=== PATIENT | female | born 1970 | race Two or more races ===

== ENCOUNTER 2020-05-21 09:22 | Outpatient (REF) | payer OTHER, SELFPAY ==
--- NOTE | ~2020-05-21 | MM_ITS ---
EXAMINATION: MM SCREENING DIGITAL BREAST TOMOSYNTHESIS, BILATERAL CLINICAL INFORMATION: Screening. Asymptomatic. Remote breast reduction mammoplasty 2008. The lifetime risk of breast cancer based on the Tyrer-Cuzick Model is 13%. COMPARISON: Mammography: 06/12/2016, 03/25/2015 TECHNIQUE: Digital breast tomosynthesis is performed in both the craniocaudal and mediolateral oblique views along with computer-aided detection (CAD). Synthesized 2D images are generated from the tomosynthesis. FINDINGS: There are scattered areas of fibroglandular density (ACR BI-RADS breast composition Category b). There are no significant masses, abnormal calcifications, or other abnormalities. There is some minor scarring in the lower breasts and some symmetric punctate round, rim, predominantly dermal calcifications consistent with the history prior reduction mammoplasty. There are no significant changes from prior exams. MM/MM tomosynthesis screening BI IMPRESSION: No mammographic evidence of malignancy. ASSESSMENT: BI-RADS 2: Benign RECOMMENDATION: Routine annual mammography screening. This patient's information was entered into a reminder system with a target due date for their next mammogram.
== END 2020-05-21 09:23 | disposition home or self-care (01) ==
LOC: HO.MAMMO 09:22
PROVIDERS: PCP Internal Medicine; Visit Provider Internal Medicine
DX: Z12.31 Encounter for screening mammogram for malignant neoplasm of breast (principal)
CPT/HCPCS: 77063; 77067

== ENCOUNTER 2020-07-12 10:10 | Outpatient (REF) | payer OTHER, SELFPAY ==
--- NOTE | ~2020-07-12 | US_ITS ---
EXAMINATION: PELVIC ULTRASOUND CLINICAL INFORMATION: Frequent menses COMPARISON: None TECHNIQUE: Transabdominal and transvaginal pelvic ultrasound was performed. Transvaginal exam was performed for better visualization of the uterus and ovaries. FINDINGS: The uterus is anteverted and measures 10.1 x 7.5 x 9 cm in dimension. Uterine echotexture is heterogeneous. At least 5 focal uterine lesions are seen probably representing fibroids. These measure 5.2 x 4.8 x 4 cm in the posterior lower uterine segment, 2 cm in the posterior uterine body, 2.5 cm in the posterior uterine body, 2.5 x 3 cm in the fundus and 2.5 cm in the anterior uterine body. The endometrium appears heterogeneous with several small echogenic foci. Endometrial thickness measures 9 mm. There is increased vascularity seen. Appearance is questionable for possible endometrial polyp. The right ovary is normal and measures 3 x 2 x 1.6 cm. The left ovary measures 4 x 2 x 2.7 cm. There is a 0.9 cm complex left ovarian cyst with internal echoes. There is no fluid in the pelvis. US/US pelvic and transvaginal IMPRESSION: Enlarged fibroid uterus. Heterogeneous-appearing endometrium with vascularity. Appearance is questionable for possible endometrial polyp. Either follow-up pelvic ultrasound, sonohysterogram or pelvic MRI could be considered. 1.9 cm complex left ovarian cyst.
== END 2020-07-12 10:11 | disposition home or self-care (01) ==
LOC: HO.HMGCX 10:10
PROVIDERS: PCP Internal Medicine; Visit Provider Advanced Practice Midwife
DX: N92.0 Excessive and frequent menstruation with regular cycle (principal)
CPT/HCPCS: 76830; 76856

== ENCOUNTER 2020-08-30 08:15 | Outpatient (REF) | payer OTHER, SELFPAY ==
[2020-08-30 10:39] LABS: Hematocrit 41.4 % (37-47); Hemoglobin 13.3 g/dl (12.0-16.0); Mean Corpuscular HGB Conc 32.1 g/dl (31.0-35.0); Mean Platelet Volume 10.5 fL (9.4-12.3); Platelet Count 285 X10*3/uL (160-400); Red Blood Count 5.11 X10*6/uL (4.20-5.50); Red Cell Distribution Width 15.8 % (11.0-16.0); White Blood Count 6.3 X10*3/uL (4.8-10.8)
[2020-08-30 10:45] LABS: Alanine Aminotransferase 13 U/L (0-31); Albumin Level 4.3 g/dL (3.5-5.0); Alkaline Phosphatase 51 U/L (39-117); Anion Gap 11 (12-20); Aspartate Amino Transferase 15 U/L (5-31); Bilirubin Total 0.5 mg/dL (0.0-1.0); Blood Urea Nitrogen 11 mg/dL (9-16); Calcium 9.7 mg/dL (8.4-10.2); Carbon Dioxide 29 mmol/L (22-29); Chloride 106 mmol/L (96-108); Estimated Glomerular Filt Rate > 60; Glucose Random 110 mg/dL (60-115); Potassium 4.5 mmol/L (3.3-5.1); Sodium 141 mmol/L (135-145); Total Protein 6.9 g/dL (6.5-8.0)
== END 2020-08-30 08:16 | disposition home or self-care (01) ==
LOC: HO.LAB 08:15
PROVIDERS: PCP Internal Medicine; Referring Provider Internal Medicine; Visit Provider Nurse Practitioner Family
DX: K59.00 Constipation, unspecified (principal)
CPT/HCPCS: 36415; 80053; 85027

== ENCOUNTER 2020-09-14 12:46 | Outpatient (REF) | payer OTHER, SELFPAY ==
[2020-09-14 15:15] LABS: HCG Quantitative < 2 mIU/mL; TSH reflex Free T4 1.57 uIU/mL (0.32-4.0)
[2020-09-15 02:40] LABS: CT PCR NOT DETECTED (Not Detect.); NG PCR NOT DETECTED (Not Detect.)
[2020-09-15 12:52] LABS: CA-125 17 U/mL (<35)
[2020-09-17 07:01] LABS: HPV mRNA E6/E7 rflx Not Detected (Not Detected)
== END 2020-09-14 12:47 | disposition home or self-care (01) ==
LOC: HO.LAB 12:46
PROVIDERS: PCP Internal Medicine; Visit Provider Obstetrics & Gynecology
DX: Z12.4 Encounter for screening for malignant neoplasm of cervix (principal); Z11.51 Encounter for screening for human papillomavirus (HPV); Z11.3 Encounter for screening for infections with a predominantly sexual mode of transmission; N92.1 Excessive and frequent menstruation with irregular cycle; N84.0 Polyp of corpus uteri; N93.9 Abnormal uterine and vaginal bleeding, unspecified; D21.9 Benign neoplasm of connective and other soft tissue, unspecified; N83.299 Other ovarian cyst, unspecified side
CPT/HCPCS: 36415; 84443; 84702; 86304; 87491; 87591; 87624; 88142

== ENCOUNTER → 2020-09-21 08:46 | Outpatient (BNVA) | payer OTHER, SELFPAY | PROVIDERS: Visit Provider Obstetrics & Gynecology ==

== ENCOUNTER 2020-09-23 08:08 | Day surgery (SDC) | payer OTHER, SELFPAY ==
--- NOTE | 2020-09-22 09:07 | HO.ANESPROP2 ---
Documented by User: Merlyn Gupta 09/22/20 09:07 HPI - Anesthesia Eval Consult details Narrative: 50yo F for D&C Diagnostic Hysteroscopy,poss polypectomy/myomectomy PMFSH Active Problems Active Problems: All Active Problems (Updated 09/14/20 @ 13:38 by Daniel Nolan MD) Complex ovarian cyst (Acute) Endometrial polyp (Acute) Myoma (Acute) Menometrorrhagia (Acute) Past Medical History Medical History Anemia Constipation Lipoma of both lower extremities Surgical History Surgical History H/O hernia repair Hx of breast reduction, elective Social History Social History Alcohol intake: never Patient Tobacco Use Status: Never used Tobacco Second Hand Smoke Exposure: No Use of substances other than those prescribed or required for medical reasons: No Are you DNR?: No Advance Directives: No Advance Directives Information Provided: Yes Advance Directives on File: No Nutrition Risks: No Nutritional Risk Meds Allergies Allergy/AdvReac Type Severity Reaction Status Date / Time No Known Allergies Allergy Verified 09/14/20 13:09 Home Medications Medication Instructions Recorded Confirmed Last Taken Type ibuprofen 800 mg tablet 800 mg PO Q8H 08/30/20 09/21/20 Unknown History Exam Exam Date and Time: September 22, 2020906 Pertinent Lab Results Pertinent Lab Results: Laboratory Tests 08/30/20 08/30/20 10:10 10:10 WBC 6.3 Hgb 13.3 Hct 41.4 Plt Count 285 Sodium 141 Potassium 4.5 Chloride 106 Carbon Dioxide 29 BUN 11 Creatinine 0.81 Assessment and Plan Assessment Anesthesia Assessment: Chart Reviewed Documented by User: Hien Anderson 09/23/20 09:03 PMFSH Past Medical History Medical History Anemia Constipation Lipoma of both lower extremities Surgical History Surgical History H/O hernia repair Hx of breast reduction, elective Social History Social History Alcohol intake: never Patient Tobacco Use Status: Never used Tobacco Second Hand Smoke Exposure: No Use of substances other than those prescribed or required for medical reasons: No Are you DNR?: No Advance Directives: No Advance Directives Information Provided: Yes Advance Directives on File: No Nutrition Risks: No Nutritional Risk Meds Allergies Allergy/AdvReac Type Severity Reaction Status Date / Time No Known Allergies Allergy Verified 09/14/20 13:09 Home Medications Medication Instructions Recorded Confirmed Last Taken Type ibuprofen 800 mg tablet 800 mg PO Q8H 08/30/20 09/21/20 Unknown History Exam Airway Mallampati Class: II TM Dist: >3cm Neck ROM: Full Assessment and Plan Assessment Anesthesia Assessment: Anesthesia Plan Discussed and Chart Reviewed Final Anesthetic Review NPO: Yes ASA Class: II Final Preanesthetic Review: No Changes in Pt Med Stat, Meds/Allgs Chart Reviewed, Consent Obtained/Reviewed and Anes Risks/Benef Reviewed Patient Risk: Low Procedure Risk: Low Assessment/Block/Sedation in SS: Assess/Block/Sedation-SS Anesthetic Plan Anesthetic Plan: MAC: Disposition: Standard PACU
[2020-09-23 08:17] VITALS: BMI 33.4
[2020-09-23 08:30] VITALS: BP 120/48; PULSE 68; RESP 18; TEMP 36.3; O2SAT 97
[2020-09-23 08:36] LABS: UPreg QC Valid YES; Urine Pregnancy NEGATIVE (NEGATIVE)
--- NOTE | 2020-09-23 08:39 | MHC.SHP ---
Pre-Procedural Eval Section A Date of Service: 09/23/20 The patient is an INPATIENT: No Changes since office visit: No Cold of Flu in the past 2 weeks, No New Medical Problems, No Changes in Medication and No Patient answered all questions The History & Physical has been completed within 30 days and I have reviewed it.: Yes Section B Chief Complaint: excessive and frequent menstruation Allergies: Allergies Allergy/AdvReac Type Severity Reaction Status Date / Time No Known Allergies Allergy Verified 09/14/20 13:09 Plan Diagnosis/Plan: Unchanged I have reviewed the history and physical and performed a pertinent physical examination on my patient. No changes have occurred unless specified.
[2020-09-23] MEDS: Lactated Ringers 1,000 ML 100 ML IVCONT (08:46)
--- NOTE | 2020-09-23 10:00 | PM.OP ---
Brief Operative Note Date of Service: 09/23/20 Pre-op diagnosis: Menometrorrhagia with endometrial polyp by ultrasound Post-op diagnosis: same (Fundal endometrial polyp) Procedure: Hysteroscopy D&C, Polypectomy Surgeon: Daniel Nolan MD Anesthesia: MAC Was an Project Development Leader used for this Procedure?: No Estimated blood loss (mL): 0 Pathology: other (Endometrial Scrapping. Polyp) Condition: stable Disposition: PACU
--- NOTE | 2020-09-23 10:04 | P.OP_ITS ---
Operative Note Operative Note Date of Service: 09/23/20 Narrative: Preop Diagnosis: Menometrorrhagia with Endometrial polyp by US Operation: Diagnostic Hysteroscopy, Dilataion & Curettage and polypectomy Post Op Diagnosis: Endometrial Polyp QBL: Minimal Anesthesia: MAC Surgeon: Daniel Nolan MD Core Composer Feeder: None Complication: None Pathology: Endometrial Scrapings, Endometrial polyp Complication: None Pathology: Endometrial Scrapings, Endometrial polyp Procedure: The patient was put in the dorsal lithotomy position, scrubbed, and draped in the usual manner. A sterile speculum was inserted in the patient's vagina. The anterior lip of the cervix was grasped with a single tooth tenacul um. The cervix was dilated up to 5 mm, then the scope was inserted in the patient's uterus. Inspection revealed endometrial polyp. The Myosure Reach device was used; it was introduced through the operative channel and polypectomy done with no complications, this was followed by sharp curetting the endometrial cavity with moderate tissue was retrieved. At the end of the procedure, all instruments were taken out of the patient uterine and vaginal cavity. The single tooth tenaculum was removed and homeostasis was assured using pressure,. The patient tolerated the procedure well and was transferred to the PACU in a stable condition.
[2020-09-23 10:05] VITALS: BP 131/77; PULSE 92; RESP 16; TEMP 36.4; O2SAT 98
[2020-09-23 10:20] VITALS: BP 135/76; PULSE 70; RESP 16; O2SAT 96
[2020-09-23] MEDS: oxyCODONE HCl Immed Release 5 MG TABLET PO (10:20)
[2020-09-23] MEDS: Acetaminophen 325 MG TABLET 650 MG PO (10:22)
[2020-09-23 10:35] VITALS: BP 137/78; PULSE 66; RESP 16; TEMP 36.4; O2SAT 97
== END 2020-09-23 11:03 ==
LOC: HO.SSS 08:08
PROVIDERS: PCP Internal Medicine; Visit Provider Obstetrics & Gynecology
PROC: 0UDB8ZX Extraction of Endometrium, Via Natural or Artificial Opening Endoscopic, Diagnostic (ICD-10-PCS; CPT 58558; principal; 2020-09-23 09:50)
DX: N92.1 Excessive and frequent menstruation with irregular cycle (principal); N84.0 Polyp of corpus uteri; N83.299 Other ovarian cyst, unspecified side; D64.9 Anemia, unspecified
CPT/HCPCS: 58558; 81025; 88305; J1100; J2250; J2405; J3010

== ENCOUNTER 2020-09-27 06:57 | Day surgery (SDC) | payer OTHER, SELFPAY ==
[2020-09-21 12:10] VITALS: BMI 34.4
--- NOTE | 2020-09-26 09:20 | HO.ANESPROP2 ---
HPI - Anesthesia Eval Consult details Narrative: 50yo F for Colonoscopy s/p D&C hyst 09/23/20 with GA-mask PMFSH Active Problems Active Problems: All Active Problems (Updated 09/14/20 @ 13:38 by Daniel Nolan MD) Complex ovarian cyst (Acute) Endometrial polyp (Acute) Myoma (Acute) Menometrorrhagia (Acute) Past Medical History Medical History Anemia Constipation Lipoma of both lower extremities Surgical History Surgical History H/O hernia repair Hx of breast reduction, elective Social History Social History Alcohol intake: never Patient Tobacco Use Status: Never used Tobacco Second Hand Smoke Exposure: No Use of substances other than those prescribed or required for medical reasons: No Are you DNR?: No Advance Directives: No Advance Directives Information Provided: Yes Patient : No FDLMP: UCG pending Meds Allergies Allergy/AdvReac Type Severity Reaction Status Date / Time No Known Allergies Allergy Verified 09/14/20 13:09 Home Medications Medication Instructions Recorded Confirmed Last Taken Type ibuprofen 800 mg tablet 800 mg PO Q8H 08/30/20 09/21/20 Unknown History Exam Exam Date and Time: September 26, 2020 0920 Height,Weight and Vital Signs: Height 5 ft 6 in Weight 96.729 kg Pertinent Lab Results Pertinent Lab Results: Laboratory Tests 08/30/20 08/30/20 10:10 10:10 WBC 6.3 Hgb 13.3 Hct 41.4 Plt Count 285 Sodium 141 Potassium 4.5 Chloride 106 Carbon Dioxide 29 BUN 11 Creatinine 0.81 Assessment and Plan Assessment Anesthesia Assessment: Chart Reviewed
[2020-09-27 07:16] LABS: UPreg QC Valid YES; Urine Pregnancy NEGATIVE (NEGATIVE)
[2020-09-27 07:24] VITALS: BMI 33.4
--- NOTE | 2020-09-27 07:29 | P.CONAN_ITS ---
[facility] Active Problems Active Problems: All Active Problems (Updated 09/14/20 @ 13:38 by Daniel Nolan MD) Complex ovarian cyst (Acute) Endometrial polyp (Acute) Myoma (Acute) Menometrorrhagia (Acute) Past Medical History Medical History Anemia Constipation Lipoma of both lower extremities Surgical History Surgical History H/O hernia repair Hx of breast reduction, elective Social History Social History Alcohol intake: never Patient Tobacco Use Status: Never used Tobacco Second Hand Smoke Exposure: No Use of substances other than those prescribed or required for medical reasons: No Are you DNR?: No Advance Directives: No Advance Directives Information Provided: Yes Patient : No FDLMP: UCG pending Meds Allergies Allergy/AdvReac Type Severity Reaction Status Date / Time No Known Allergies Allergy Verified 09/14/20 13:09 Active Medications: Current Medications Generic Name Dose Route Start Last Admin Trade Name Stefanq PRN Reason Stop Dose Admin Lactated Ringer's 1,000 mls @ 100 mls/hr 09/27/20 07:15 Lr IVCONT .Q10H [facility] Home Medications Medication Instructions Recorded Confirmed Last Taken Type ibuprofen 800 mg tablet 800 mg PO Q8H 08/30/20 09/21/20 Unknown History Exam Exam Date and Time: September 27, 2020 0729 Height,Weight and Vital Signs: Height 5 ft 6 in Weight 96.729 kg Pertinent Lab Results Pertinent Lab Results: Laboratory Tests 09/27/20 07:00 Urine Test NEGATIVE Airway Mallampati Class: III TM Dist: >3cm Neck ROM: Full Heart: RRR Lungs: CTA
[2020-09-27 07:30] VITALS: BP 128/69; PULSE 89; RESP 16; TEMP 36.3; O2SAT 97
[2020-09-27] MEDS: Lactated Ringers 1,000 ML 100 ML IVCONT (07:33)
--- NOTE | 2020-09-27 07:37 | PC.NURSE ---
Urine test negative
--- NOTE | 2020-09-27 07:40 | MHC.SHP ---
Pre-Procedural Eval Section A Date of Service: 09/27/20 The patient is an INPATIENT: No Changes since office visit: Yes Patient answered all questions; No Cold of Flu in the past 2 weeks, No New Medical Problems and No Changes in Medication The History & Physical has been completed within 30 days and I have reviewed it.: Yes Section B Chief Complaint: screening Allergies: Allergies Allergy/AdvReac Type Severity Reaction Status Date / Time No Known Allergies Allergy Verified 09/14/20 13:09 Exam Surgical H&P Exam: Normal: Heart, Normal: Lungs, Normal: Extremities and Normal: Abdomen Plan Diagnosis/Plan: Unchanged I have reviewed the history and physical and performed a pertinent physical examination on my patient. No changes have occurred unless specified.
--- NOTE | 2020-09-27 07:54 | PM.OP ---
Brief Operative Note Date of Service: 09/27/20 Pre-op diagnosis: Colon cancer screening, intermittent constipation Post-op diagnosis: other (Diverticulosis, hemorrhoids) Procedure: COLONOSCOPY TILL CECUM Consent: Indications for the procedure and potential complications of bleeding, perforation, reaction to medications and missed diagnosis were discussed with the patient and informed consent was obtained. Instrument: Olympus PCF H 190 L variable stiffness pediatric colonoscope Monitoring: Vital signs and clinical assessment, intermittent blood pressure monitoring, continuous EKG monitoring, Pulse oximetry and Carbon Dioxide monitoring were done throughout the procedure. Colon withdrawl time was 37 minutes. Procedure: The patient was placed in the left lateral decubitis position and pre-procedure medications were administered. After a digital rectal examination of the ano-rectum, the video colonoscope was inserted into the rectum and advanced through the colon to the cecum. The colonoscope was slowly withdrawn in a retrograde panoramic fashion and the colon mucosa was carefully examined including a retroflexed view of the rectum. Findings and interventions are described below. Procedure Difficulty: Without difficulty Findings: Terminal Ileum: Not evaluated Cecum: Normal Ascending Colon: Normal Transverse Colon: Normal Descending Colon: Moderate diverticulosis Sigmoid Colon: Moderate diverticulosis Rectum: Normal Ano-rectum: Moderate internal hemorrhoids Colon preparation: Good to fair after copious irrigation Impression and Post Procedure Diagnosis: Colonoscopy Findings: No polyps were detected Moderate diverticulosis seen in the left colon Moderate hemorrhoids on retroflexed exam. Plan: Patient has an appointment on in the GI Clinic on 10/18/20 with Johanne Talley FNP-BC . Repeat Colonoscopy in 5 yrs due to fair prep. Above findings were reviewed with the patient and diverticulosis handout was given in the discharge area Surgeon: Gabriel Montalvo MD Anesthesia: MAC (Dr Gross) Was an Atmospheric Chemist used for this Procedure?: Yes Atmospheric Chemist: Radha Hinojosa Estimated blood loss (mL): 0 Pathology: none sent Condition: stable Disposition: PACU
[2020-09-27 08:52] VITALS: BP 118/75; PULSE 93; RESP 16; TEMP 36.7; O2SAT 98
[2020-09-27 09:07] VITALS: BP 116/81; PULSE 81; RESP 18; TEMP 36.7; O2SAT 100
--- NOTE | 2020-09-27 17:07 | W.PM.OPN ---
Operative Note Operative Note Date of Service: 09/27/20 Narrative: Pre-op diagnosis: Colon cancer screening, intermittent constipation Post-op diagnosis: other (Diverticulosis, hemorrhoids) Procedure: COLONOSCOPY TILL CECUM Consent: Indications for the procedure and potential complications of bleeding, perforation, reaction to medications and missed diagnosis were discussed with the patient and informed consent was obtained. Instrument: Olympus PCF H 190 L variable stiffness pediatric colonoscope Monitoring: Vital signs and clinical assessment, intermittent blood pressure monitoring, continuous EKG monitoring, Pulse oximetry and Carbon Dioxide monitoring were done throughout the procedure. Colon withdrawl time was 37 minutes. Procedure: The patient was placed in the left lateral decubitis position and pre-procedure medications were administered. After a digital rectal examination of the ano-rectum, the video colonoscope was inserted into the rectum and advanced through the colon to the cecum. The colonoscope was slowly withdrawn in a retrograde panoramic fashion and the colon mucosa was carefully examined including a retroflexed view of the rectum. Findings and interventions are described below. Procedure Difficulty: Without difficulty Findings: Terminal Ileum: Not evaluated Cecum: Normal Ascending Colon: Normal Transverse Colon: Normal Descending Colon: Moderate diverticulosis Sigmoid Colon: Moderate diverticulosis Rectum: Normal Ano-rectum: Moderate internal hemorrhoids Colon preparation: Good to fair after copious irrigation Impression and Post Procedure Diagnosis: Colonoscopy Findings: No polyps were detected Moderate diverticulosis seen in the left colon Moderate hemorrhoids on retroflexed exam. Plan: Patient has an appointment on in the GI Clinic on 10/18/20 with Johanne Talley FNP-BC . Repeat Colonoscopy in 5 yrs due to fair prep. Above findings were reviewed with the patient and diverticulosis handout was given in the discharge area Surgeon: Gabriel Montalvo MD Anesthesia: MAC (Dr Gross) Was an Vocal Music Instructor used for this Procedure?: Yes Vocal Music Instructor: Radha Hinojosa Estimated blood loss (mL): 0 Pathology: none sent Condition: stable Disposition: PACU
== END 2020-09-27 09:50 | disposition home or self-care (01) ==
PROVIDERS: Nurse Practitioner; PCP Internal Medicine; Visit Provider Internal Medicine Gastroenterology
PROC: 0DJD8ZZ Inspection of Lower Intestinal Tract, Via Natural or Artificial Opening Endoscopic (ICD-10-PCS; CPT 45378; principal; 2020-09-27 08:20)
DX: Z12.11 Encounter for screening for malignant neoplasm of colon (principal); K57.30 Diverticulosis of large intestine without perforation or abscess without bleeding; K64.8 Other hemorrhoids; K59.00 Constipation, unspecified; Z79.1 Long term (current) use of non-steroidal anti-inflammatories (NSAID)
CPT/HCPCS: 45378; 81025

== ENCOUNTER → 2020-10-18 08:24 | Outpatient (BNVA) | payer OTHER, SELFPAY | PROVIDERS: PCP Internal Medicine; Visit Provider Nurse Practitioner Family ==

== ENCOUNTER 2020-12-15 10:05 | Outpatient (REF) | payer OTHER, SELFPAY ==
--- NOTE | ~2020-12-15 | US_ITS ---
EXAMINATION: US PELVIS CLINICAL INFORMATION: Ovarian cyst. COMPARISON: Previous pelvic ultrasound July 2020. TECHNIQUE: Ultrasound of the pelvis is performed using both transabdominal and transvaginal transducers along with Doppler. Transvaginal imaging is performed due to inadequate visualization transabdominally. FINDINGS: The uterus is anteverted and measures 12 x 8 x 8 cm in dimension. There are multiple, at least 5, hypoechoic uterine lesions suggestive of fibroids. The largest is a subserosal 5.2 x 5.1 x 5.7 cm left uterine body fibroid. There are smaller 1.6 x 1.6 x 1.8 cm posterior uterine body, 0.8 x 2 x 2 cm mid uterine body and 1.4 x 1.4 x 1.5 cm left anterior uterine body fibroid adjacent to the endometrium. There is a 2.3 x 2.9 x 2.7 cm right posterior fundal fibroid. These do not appear appreciably changed from previous exam. The endometrium is not well visualized due to the fibroids. The right ovary is normal appearing and measures 2.9 x 2.1 x 2.2 cm. The left ovary measures 4.4 x 2.2 x 2.5 cm. There is a 2.4 x 1.8 x 2 cm hypoechoic lesion in the left ovary with small calcification. This measured 1.9 cm on July 2020 exam and appears more solid appearing and slightly increased in size. There is a small amount of fluid in the pelvis. US/US pelvic and transvaginal IMPRESSION: Fibroid uterus. Many fibroids abut the endometrium. The endometrium is not well visualized due to the fibroids. Interval increase in size in 2.4 x 1.8 x 2 cm hypoechoic lesion in the left ovary which appears more solid compared to July 2020 exam.
== END 2020-12-15 10:06 | disposition home or self-care (01) ==
LOC: HO.HMGCX 10:05
PROVIDERS: PCP Internal Medicine; Visit Provider Obstetrics & Gynecology
DX: N83.299 Other ovarian cyst, unspecified side (principal)
CPT/HCPCS: 76830; 76856

== ENCOUNTER → 2020-12-21 14:57 | Outpatient (BNVA) | payer OTHER, SELFPAY | PROVIDERS: Visit Provider Obstetrics & Gynecology ==

== ENCOUNTER → 2020-12-22 14:52 | Outpatient (BNVA) | payer OTHER, SELFPAY | PROVIDERS: Visit Provider Obstetrics & Gynecology ==

== ENCOUNTER → 2020-12-23 12:00 | Outpatient (BNVA) | payer OTHER, SELFPAY | PROVIDERS: Visit Provider Obstetrics & Gynecology ==

== ENCOUNTER → 2021-01-25 09:14 | Outpatient (BNVA) | payer OTHER, SELFPAY | PROVIDERS: PCP Internal Medicine; Visit Provider Nurse Practitioner Family ==

== ENCOUNTER 2021-04-26 09:08 | Outpatient (REF) | payer OTHER, SELFPAY ==
[2021-04-26 11:42] LABS: Folate 14.7 ng/mL (> or = 4.0); Vitamin B12 339 pg/mL (200-900)
[2021-04-28 02:01] LABS: CA-125 20 U/mL (<35)
[2021-05-01 15:02] LABS: Vitamin D 25-OH, D2 <4 ng/mL; Vitamin D 25-OH, D3 20 ng/mL; Vitamin D 25-OH, Total 20 ng/mL (30-100)
== END 2021-04-26 09:09 | disposition home or self-care (01) ==
LOC: HO.LAB 09:08
PROVIDERS: Obstetrics & Gynecology; PCP Internal Medicine; Referring Provider Internal Medicine; Visit Provider Nurse Practitioner Family
DX: R19.7 Diarrhea, unspecified (principal); E55.9 Vitamin D deficiency, unspecified; N83.299 Other ovarian cyst, unspecified side; K59.04 Chronic idiopathic constipation
CPT/HCPCS: 36415; 82306; 82607; 82746; 84443; 86304

== ENCOUNTER → 2021-08-09 09:34 | Outpatient (BNVA) | payer OTHER, SELFPAY | PROVIDERS: PCP Internal Medicine; Referring Provider Internal Medicine; Visit Provider Nurse Practitioner Family | DX: Z13.89 Encounter for screening for other disorder (principal) ==

== ENCOUNTER 2021-09-14 14:32 | Outpatient (REF) | payer OTHER, SELFPAY ==
[2021-09-14 15:25] LABS: Hematocrit 37.5 % (37.0-47.0); Hemoglobin 12.6 g/dl (12.0-16.0); Mean Corpuscular HGB Conc 33.6 g/dl (31.0-35.0); Mean Corpuscular Hemoglobin 27.6 pg (27.0-33.0); Mean Corpuscular Volume 82.1 fL (80.0-98.0); Mean Platelet Volume 10.8 fL (9.4-12.3); Platelet Count 369 X10*3/uL (160-400); Red Blood Count 4.57 X10*6/uL (4.20-5.50); Red Cell Distribution Width 12.8 % (11.0-16.0); White Blood Count 6.2 X10*3/uL (4.8-10.8)
[2021-09-14 16:04] LABS: HCG Quantitative < 2 mIU/mL; TSH reflex Free T4 0.86 uIU/mL (0.32-4.0)
[2021-09-14 19:22] LABS: CT PCR NOT DETECTED (Not Detect.); NG PCR NOT DETECTED (Not Detect.)
== END 2021-09-14 14:33 | disposition home or self-care (01) ==
LOC: HO.LAB 14:32
PROVIDERS: PCP Internal Medicine; Visit Provider Obstetrics & Gynecology
DX: Z01.419 Encounter for gynecological examination (general) (routine) without abnormal findings (principal); N93.9 Abnormal uterine and vaginal bleeding, unspecified; N83.299 Other ovarian cyst, unspecified side; Z11.3 Encounter for screening for infections with a predominantly sexual mode of transmission; Z11.8 Encounter for screening for other infectious and parasitic diseases; Z13.29 Encounter for screening for other suspected endocrine disorder
CPT/HCPCS: 36415; 84443; 84702; 85027; 87491; 87591

== ENCOUNTER 2021-09-20 15:01 | Outpatient (REF) | payer OTHER, SELFPAY ==
--- NOTE | ~2021-09-20 | MM_ITS ---
EXAMINATION: MM SCREENING DIGITAL BREAST TOMOSYNTHESIS, BILATERAL CLINICAL INFORMATION: Screening. Asymptomatic. Reduction mammoplasty, 2008. The lifetime risk of breast cancer based on the Tyrer-Cuzick Model is 10%. COMPARISON: Mammography: 05/21/2020, 06/12/2016, 03/25/2015 TECHNIQUE: Digital breast tomosynthesis is performed in both the craniocaudal and mediolateral oblique views along with computer-aided detection (CAD). Synthesized 2D images are generated from the tomosynthesis. FINDINGS: There are scattered areas of fibroglandular density (ACR BI-RADS breast composition Category b). Breast tissue composition borders on predominantly fatty. Background stromal are stable. There is minor scarring in the right is benign round and dermal calcifications consistent with the remote reduction mammoplasty. There is no interval mass or architectural abnormality or abnormal calcifications. The axilla are unremarkable. No significant changes. MM/MM tomosynthesis screening BI IMPRESSION: No mammographic evidence of malignancy. ASSESSMENT: BI-RADS 2: Benign RECOMMENDATION: Routine annual mammography screening. This patient's information was entered into a reminder system with a target due date for their next mammogram.
== END 2021-09-20 15:02 | disposition home or self-care (01) ==
LOC: HO.MAMMO 15:01
PROVIDERS: Visit Provider Obstetrics & Gynecology
DX: Z12.31 Encounter for screening mammogram for malignant neoplasm of breast (principal)
CPT/HCPCS: 77063; 77067

== ENCOUNTER 2021-10-18 14:07 | Outpatient (REF) | payer OTHER, SELFPAY | END 2021-10-18 14:08 | disposition home or self-care (01) | LOC: HO.LAB 14:07 | PROVIDERS: PCP Internal Medicine; Visit Provider Obstetrics & Gynecology | DX: N93.9 Abnormal uterine and vaginal bleeding, unspecified (principal) | CPT/HCPCS: 58100; 88305 ==

== ENCOUNTER 2021-11-01 14:54 | Outpatient (REF) | payer OTHER, SELFPAY ==
--- NOTE | ~2021-11-01 | US_ITS ---
EXAMINATION: US PELVIS CLINICAL INFORMATION: Abnormal uterine and vaginal bleeding. COMPARISON: Ultrasound 12/15/2020. TECHNIQUE: Ultrasound of the pelvis is performed using both transabdominal and transvaginal transducers along with Doppler. Transvaginal imaging is performed due to inadequate visualization transabdominally. FINDINGS: Uterus: The uterus is anteverted and anteflexed measuring 8.7 x 6.4 x 9.6 cm. The uterus is bulky and is difficult to measure. The double wall endometrium is not visualized. The uterus is smooth in contour and has normal myometrial echogenicity. There are several hypoechoic areas. 1. Lesion in the right body of the uterus measures 3.8 x 1.2 x 4.8 cm. Previously measured 5.6 x 4.2 x 4.5 cm. 2. Lesion in the mid body of the uterus likely submucosal measures 2.2 x 1.9 x 2.2 cm. Previously measured 2.8 x 2.0 x 2.0 cm. 3. Lesion in the lower uterine segment likely submucosal measuring 1.7 x 1.6 x 1.4 cm. Previously measured 1.4 x 1.4 x 1.4 cm. 4. Lesion in the fundus measures 3.0 x 2.9 x 3.8 cm. Previously measured 2.3 x 2.9 x 2.7 cm. Adnexa: Both ovaries are visualized. There is normal color-flow to the adnexa. There is no ovarian torsion. There is no pelvic ascites or fluid collection. Right ovary is not visualized. Left ovary measures 2.97 x 1.57 x 1.73 cm and volume 4.22 mL. It appears unremarkable. There is a small amount of free fluid in the cul-de-sac. US/US pelvic and transvaginal IMPRESSION: Bulky uterus with multiple uterine fibroids essentially unchanged to previous study. Right ovary is not seen. The left ovary stable. There is small amount of free fluid in the cul-de-sac.
== END 2021-11-01 14:55 | disposition home or self-care (01) ==
LOC: HO.US 14:54
PROVIDERS: Visit Provider Obstetrics & Gynecology
DX: N93.9 Abnormal uterine and vaginal bleeding, unspecified (principal)
CPT/HCPCS: 76830; 76856

== ENCOUNTER 2022-09-17 11:20 | Outpatient (AMB) | payer OTHER, SELFPAY ==
--- NOTE | 2022-09-17 11:35 | A.OFFVIS_ITS ---
Intake Vital Signs 09/17/22 11:38 Height 5 ft 6 in Weight 194 lb BMI 31.3 BP 119/76 Blood Pressure Location Lt brachial Position Sitting Pulse 74 Intake Visit Reasons: 1 YEAR FOLLOW UP CIC Intake Note: Myriam presents in office as a est.patient for a 1 YEAR FOLLOW UP CIC PT CC: pt reports having no concerns pt denies any other GI Issues Command Post Craftsman Required: Yes Command Post Craftsman Language: Serbian Accompanied by: Self / Same As Patient Allergies No Known Allergies Allergy (Verified 09/17/22 11:36) HPI 1 YEAR FOLLOW UP CIC HPI Details LAST VISIT Constipation Patient reports that he has been moving her bowels much better now that she is taking Linzess. Patient states she has bowel movements every day. Patient would like to continue on this medication. Reports that Senokot was not working for her. Patient denies any other GI concerning symptoms. I will see her in 1 year, sooner on as needed basis. Patient is agreeable to this plan and verbalizes understanding of instructions. She was given the opportunity to ask questions and all questions answered. ? Thank you for allowing me to participate in her care Plan Medications Refilled linaclotide (Linzess) 145 mcg PO DAILY 90 caps 4RF Discontinued sennosides (Natural Senna Laxative) Discontinued Reason: Patient no longer taking 17.2 mg (2 x 8.6 mg) PO BEDTIME 60 tabs 6RF constipation K59.00 TODAY'S VISIT Patient is here today for follow-up. Since the last time I have seen her patient reports that she has been doing better. Patient was on Linzess, however recently ran out and does not have it anymore. Patient will like to refill it today. Patient denies any dyspepsia, dysphagia or odynophagia. Denies any melena, hematochezia, unintentional weight loss or ribbon like stools. Patient is due to go for colonoscopy in 2024. Patient denies any GI concerning symptoms today PFSH Medical History Anemia Constipation Lipoma of both lower extremities Surgical History H/O hernia repair History of esophagogastroduodenoscopy (EGD) Hx of breast reduction, elective Hx of colonoscopy Social History Alcohol intake: never Patient Tobacco Use Status: Never used Tobacco Second Hand Smoke Exposure: No Female Reproductive History Menstrual Age of Menarche: 13 Review of Systems Const Denies weight gain and Denies weight loss ENT Reports no additional complaints, Denies dysphagia and Denies odynophagia Card Reports no additional complaints Resp Reports no additional complaints GI Denies abdominal pain, Denies belching, Denies melena, Denies bloating, Denies change in bowel habits, Denies dysphagia, Denies excessive flatus, Denies dyspepsia, Denies heartburn, Denies diarrhea, Denies loose stools, Denies nausea, Denies odynophagia and Denies vomiting Musc Reports no additional complaints Neuro Reports no additional complaints Psych Reports no additional complaints Endo Reports no additional complaints Physical Exam Vital Signs: Last Vital Signs Pulse 74 09/17/22 11:38 BP 119/76 09/17/22 11:38 BMI result Body Mass Index 31.3 Const General: healthy appearing, no acute distress and well developed Nutritional Appearance: obese Orientation/consciousness: patient oriented x3 HEENT Head: Yes normal to inspection, Yes normocephalic and Yes atraumatic Face and sinus: Yes normal facial exam Mouth: Normal oral and palatal mucosa present Throat: Yes posterior oropharynx normal, Yes tonsils normal and Yes uvula midline Eyes General: appearance normal, both eyes and all related structures Neck Neck: Yes normal visual inspection, Yes full ROM and Yes trachea midline Thyroid: Thyroid normal Resp Effort & Inspection: normal respiratory effort, able to speak in complete sentences, no tracheal deviation and symmetric chest movement Auscultation: clear to auscultation bilaterally Cardio Rate: regular rate Heart sounds: S1 normal heart sound present and S2 normal heart sound present GI Inspection: Yes normal to inspection, No distended and Yes obesity Palpation (GI): Soft to palpation, not firm, nontender and No hepatosplenomegaly present Auscultation: normal bowel sounds General: Yes no CVA tenderness Back/Spine/Pelvis Back: no CVA tenderness Skin General skin exam: elasticity normal, turgor normal and dry skin Neuro General: patient oriented x3 Psych Appearance: grossly normal Mental Status: mental status grossly normal Speech and movement: Normal speech and movement present Affect: normal affect Assessment & Plan Assessment & Plan (1) Constipation: Code(s): K59.00 - Constipation, unspecified Qualifiers: Constipation type: slow transit constipation Qualified Code(s): K59.01 - Slow transit constipation Plan: Will restart patient on Linzess. Patient reports that she did well when she was taking it. Patient was also encouraged to increase fluid intake and activity to promote better bowel motility. I will see patient in 1 year, sooner on as needed basis. Patient is agreeable to this plan and verbalizes understanding of instructions. She was given the opportunity to ask questions and all questions answered. Thank you for allowing me to participate in her care Medications: New linaclotide (Linzess) 145 mcg PO DAILY 90 caps 4RF K59.04 - Chronic idiopathic constipation Coding Level of Care Code Est Pt Level 3 (03364) Diagnoses Constipation K59.01 Constipation type: slow transit constipation Time Spent (min) 35 Comment 15 minutes spent with patient and additional 10 minutes spent reviewing her r ecords
[2022-09-17 11:38] VITALS: BP 119/76; PULSE 74; BMI 31.3
== END 2022-09-17 12:07 | disposition home or self-care (01) ==
PROVIDERS: PCP Internal Medicine; Visit Provider Nurse Practitioner Family
DX: K59.01 Slow transit constipation (principal)
CPT/HCPCS: 99213

== ENCOUNTER → 2022-09-17 11:20 | Outpatient (BNVA) | payer OTHER, SELFPAY | PROVIDERS: PCP Internal Medicine; Visit Provider Nurse Practitioner Family ==

== ENCOUNTER 2022-09-26 14:27 | Outpatient (REF) | payer OTHER, SELFPAY ==
--- NOTE | ~2022-09-26 | MM_ITS ---
EXAMINATION: MM SCREENING DIGITAL BREAST TOMOSYNTHESIS, BILATERAL CLINICAL INFORMATION: Screening. Asymptomatic. The lifetime risk of breast cancer based on the Tyrer-Cuzick Model is 4%. COMPARISON: Mammography: This study is compared with prior exams dating back to 2017. TECHNIQUE: Digital breast tomosynthesis is performed in both the craniocaudal and mediolateral oblique views along with computer-aided detection (CAD). Synthesized 2D images are generated from the tomosynthesis. FINDINGS: The breasts are almost entirely fatty (ACR BI-RADS breast composition Category a). There are no significant masses, abnormal calcifications, or other abnormalities. MM/MM tomosynthesis screening BI IMPRESSION: No mammographic evidence of malignancy. ASSESSMENT: BI-RADS BI-RADS 1 - Negative RECOMMENDATION: Routine annual mammography screening. 1 year F/U This examination should not preclude the clinical evaluation of a suspicious palpable abnormality. This patient's information was entered into a reminder system with a target due date for their next mammogram.
== END 2022-09-26 14:28 | disposition home or self-care (01) ==
LOC: HO.MAMMO 14:27
PROVIDERS: Visit Provider Internal Medicine
DX: Z12.31 Encounter for screening mammogram for malignant neoplasm of breast (principal)
CPT/HCPCS: 77063; 77067

== ENCOUNTER → 2022-09-26 15:00 | Outpatient (BNV) | payer OTHER, SELFPAY | PROVIDERS: Visit Provider Radiology Diagnostic Radiology | DX: Z12.31 Encounter for screening mammogram for malignant neoplasm of breast (principal) | CPT/HCPCS: 77063; 77067 ==

== ENCOUNTER 2023-01-17 08:44 | Outpatient (REF) | payer OTHER, SELFPAY ==
--- NOTE | 2023-01-17 08:44 | EMG_ITS ---
Left median and ulnar motor and sensory studies were performed. Left radial and median and lateral antecubital sensory studies were performed. Paraspinal muscles were tested with a needle. IMPRESSION: 1. Mild left median neuropathy across carpal tunnel. 2. Mild left ulnar neuropathy across cubital tunnel. MD TAI Larios/ANDRES / [id number]
== END 2023-01-17 08:45 | disposition home or self-care (01) ==
LOC: HO.NEURO 08:44
PROVIDERS: PCP Internal Medicine; Visit Provider Internal Medicine
DX: G56.02 Carpal tunnel syndrome, left upper limb (principal)
CPT/HCPCS: 95886; 95910

== ENCOUNTER 2023-04-17 10:15 | Outpatient (REF) | payer OTHER, SELFPAY ==
[2023-04-17 15:18] LABS: Vitamin D 25-OH Total 42.1 ng/mL (>30)
== END 2023-04-17 10:16 | disposition home or self-care (01) ==
LOC: HO.CHCLDS 10:15
PROVIDERS: Visit Provider Internal Medicine
DX: E55.9 Vitamin D deficiency, unspecified (principal)
CPT/HCPCS: 36415; 82306

== ENCOUNTER 2023-07-04 10:59 | Outpatient (REF) | payer OTHER, SELFPAY ==
[2023-07-04 14:23] LABS: MANUAL DIFF FLAG NO
[2023-07-04 14:34] LABS: Basophils Percent Auto 0.5 % (0-2); Eosinophils Absolute Auto 0.3 X10*3/uL (0.0-0.4); Eosinophils Percent Auto 4.3 % (0-4); Hematocrit 39.6 % (37.0-47.0); Hemoglobin 13.3 g/dl (12.0-16.0); Imm Gran Abs Auto 0.02 X10*3/uL (0.00-0.03); Imm Gran Pct Auto 0.3 % (0.0-0.4); Lymphocytes Percent Auto 35.3 % (20-40); Mean Corpuscular HGB Conc 33.6 g/dl (31.0-35.0); Mean Corpuscular Hemoglobin 28.8 pg (27.0-33.0); Mean Corpuscular Volume 85.7 fL (80.0-98.0); Monocytes Absolute Auto 0.4 X10*3/uL (0.1-1.2); Monocytes Percent Auto 7.5 % (2-11); Neutrophils Percent Auto 52.1 % (45-73); Platelet Count 270 X10*3/uL (160-400); Red Blood Count 4.62 X10*6/uL (4.20-5.50); Red Cell Distribution Width 12.9 % (11.0-16.0); White Blood Count 5.8 X10*3/uL (4.8-10.8)
[2023-07-04 14:44] LABS: Estimated Average Glucose 140 mg/dL; Hemoglobin A1c % 6.5 % (<6.0)
[2023-07-04 15:23] LABS: Alanine Aminotransferase 20 U/L (0-31); Albumin Level 4.3 g/dL (3.5-5.0); Alkaline Phosphatase 61 U/L (39-117); Anion Gap 10 (12-20); Aspartate Amino Transferase 21 U/L (5-31); Bilirubin Total 0.7 mg/dL (0.0-1.0); Blood Urea Nitrogen 13 mg/dL (9-16); Calcium 9.2 mg/dL (8.4-10.2); Carbon Dioxide 29 mmol/L (22-29); Chloride 108 mmol/L (96-108); Estimated Glomerular Filt Rate > 60; Glucose Random 115 mg/dL (60-115); Iron 115 mcg/dL (30-160); Percent Iron Saturation 33 % (15-50); Potassium 3.7 mmol/L (3.3-5.1); Sodium 143 mmol/L (135-145); Total Iron Binding Capacity 350 mcg/dL (228-428); Total Protein 7.2 g/dL (6.5-8.0); Unsaturated Iron Binding 235 ug/dL
== END 2023-07-04 11:00 | disposition home or self-care (01) ==
LOC: HO.CHCLDS 10:59
PROVIDERS: Visit Provider Internal Medicine
DX: D50.0 Iron deficiency anemia secondary to blood loss (chronic) (principal)
CPT/HCPCS: 36415; 80053; 83036; 83540; 85025

== ENCOUNTER 2023-09-18 11:09 | Outpatient (AMB) | payer OTHER, SELFPAY ==
--- NOTE | 2023-09-18 11:28 | A.OFFVIS_ITS ---
Vital Signs 09/18/23 11:39 Height 5 ft 6 in Weight 198 lb BMI 32.0 BP 134/68 Blood Pressure Location Lt brachial Position Sitting Pulse 75 Intake Visit Reasons: 1 year fu Intake Note: Patient yearly follow up Constipation Patient cc: constipation on and off, and needed medication refill. Kinesiology Internship Required: Yes Accompanied by: Self / Same As Patient Allergies No Known Allergies Allergy (Verified 09/18/23 11:27) HPI HPI 1 year fu: Details: LAST VISIT: Constipation Will restart patient on Linzess. Patient reports that she did well when she was taking it. Patient was also encouraged to increase fluid intake and activity to promote better bowel motility. I will see patient in 1 year, sooner on as needed basis. Patient is agreeable to this plan and verbalizes understanding of instructions. She was given the opportunity to ask questions and all questions answered. ? Thank you for allowing me to participate in her care Plan Medications New linaclotide (Linzess) 145 mcg PO DAILY 90 caps 4RF K59.04 - Chronic idiopathic constipation TODAY'S VISIT: [facility] medical massage therapist used (James) present during the entire visit. Patient is here today for follow-up. Patient reports that she has been feeling well since last visit 1 year ago. Patient states that when she takes Linzess she is having bowel movement. She recently ran out and unable to get a refill. Colonoscopy in September of 2020, no polyps found, due to suboptimal prep patient was told to repeat colonoscopy in 5 years. Patient will be due next year. Patient denies any melena, hematochezia, unintentional weight loss or ribbon like stools. Patient denies any dyspepsia, dysphagia or odynophagia. Patient reports to be feeling well, denies any GI concerning symptoms. PFSH Medical History Anemia Constipation Lipoma of both lower extremities Surgical History History of esophagogastroduodenoscopy (EGD) Hx of colonoscopy H/O hernia repair Hx of breast reduction, elective Social History Alcohol intake: never Comment: medicated in PACU Patient Tobacco Use Status: Never used Tobacco Second Hand Smoke Exposure: No Female Reproductive History Menstrual Age of Menarche: 13 Review of Systems Const Denies weight gain and Denies weight loss ENT Reports no additional complaints, Denies dysphagia and Denies odynophagia Card Reports no additional complaints Resp Reports no additional complaints GI Denies abdominal pain, Denies belching, Denies melena, Denies bloating, Denies change in bowel habits, Denies dysphagia, Denies excessive flatus, Denies dyspepsia, Denies heartburn, Denies diarrhea, Denies loose stools, Denies nausea, Denies odynophagia and Denies vomiting Musc Reports no additional complaints Neuro Reports no additional complaints Psych Reports no additional complaints Endo Reports no additional complaints Physical Exam Vital Signs: Last Vital Signs Pulse 75 09/18/23 11:39 BP 134/68 09/18/23 11:39 BMI result Body Mass Index 32.0 Const General: healthy appearing, no acute distress and well developed Nutritional Appearance: obese Orientation/consciousness: patient oriented x3 Resp Effort & Inspection: normal respiratory effort, able to speak in complete senten rihcard, no tracheal deviation and symmetric chest movement Auscultation: clear to auscultation bilaterally Cardio Rate: regular rate GI Inspection: Yes normal to inspection, No distended and Yes obesity Palpation (GI): Soft to palpation, not firm, nontender and No hepatosplenomegaly present Auscultation: normal bowel sounds General: Yes no CVA tenderness Back/Spine/Pelvis Back: no CVA tenderness Skin General skin exam: elasticity normal, turgor normal and dry skin Neuro General: patient oriented x3 Psych Appearance: grossly normal Mental Status: mental status grossly normal Assessment & Plan Assessment & Plan (1) Constipation: Code(s): K59.00 - Constipation, unspecified Qualifiers: Constipation type: slow transit constipation Qualified Code(s): K59.01 - Slow transit constipation Plan Continue Linzess. Increase fluid intake and activity to promote better bowel motility. Follow-up in 1 year to discuss going for colonoscopy. Patient will call our office sooner if she will have any GI concerning symptoms. She is agreeable to this plan and verbalizes understanding of instructions. She was given the opportunity to ask questions and all questions answered. Thank you for allowing me to participate in her care Medications: Refilled linaclotide (Linzess) 145 mcg PO DAILY 90 caps 4RF K59.04 - Chronic idiopathic constipation Coding Level of Care Code Est Pt Level 3 (32638) Diagnoses Slow transit constipation K59.01 Constipation type: slow transit constipation Time Spent (min) 25 Comment 15 minutes spent with patient and additional 10 minutes spent reviewing her records
[2023-09-18 11:39] VITALS: BP 134/68; PULSE 75; BMI 32.0
== END 2023-09-18 12:49 | disposition home or self-care (01) ==
PROVIDERS: PCP Internal Medicine; Visit Provider Nurse Practitioner Family
DX: K59.01 Slow transit constipation (principal)
CPT/HCPCS: 99213

== ENCOUNTER → 2023-09-18 11:09 | Outpatient (BNVA) | payer OTHER, SELFPAY | PROVIDERS: PCP Internal Medicine; Visit Provider Nurse Practitioner Family ==

== ENCOUNTER 2023-10-02 14:36 | Outpatient (REF) | payer OTHER, SELFPAY ==
--- NOTE | ~2023-10-02 | MM_ITS ---
EXAMINATION: MM SCREENING DIGITAL BREAST TOMOSYNTHESIS, BILATERAL CLINICAL INFORMATION: Screening. Asymptomatic. COMPARISON: Mammography: This study is compared with prior exams dating back to 2020. TECHNIQUE: Digital breast tomosynthesis is performed in both the craniocaudal and mediolateral oblique views along with computer-aided detection (CAD). Synthesized 2D images are generated from the tomosynthesis. FINDINGS: The breasts are almost entirely fatty (ACR BI-RADS breast composition Category a). There are no significant masses, abnormal calcifications, or other abnormalities. MM/MM tomosynthesis screening BI IMPRESSION: No mammographic evidence of malignancy. ASSESSMENT: BI-RADS BI-RADS 1 - Negative RECOMMENDATION: Routine annual mammography screening. 1 year F/U This examination should not preclude the clinical evaluation of a suspicious palpable abnormality. This patient's information was entered into a reminder system with a target due date for their next mammogram.
== END 2023-10-02 14:37 | disposition home or self-care (01) ==
LOC: HO.MAMMO 14:36
PROVIDERS: PCP Internal Medicine; Visit Provider Internal Medicine
DX: Z12.31 Encounter for screening mammogram for malignant neoplasm of breast (principal)
CPT/HCPCS: 77063; 77067

== ENCOUNTER → 2023-10-02 15:00 | Outpatient (BNV) | payer OTHER, SELFPAY | PROVIDERS: PCP Internal Medicine; Visit Provider Radiology Diagnostic Radiology | DX: Z12.31 Encounter for screening mammogram for malignant neoplasm of breast (principal) | CPT/HCPCS: 77063; 77067 ==

== ENCOUNTER 2024-05-06 09:43 | Outpatient (REF) | payer OTHER, SELFPAY ==
--- OUTSIDE RECORDS SUMMARY | 2024-05-06 11:19 | XMS_ITS | Encounter Summary ---
Author Organization [employer] Address [address] [place] [address] Care Team Providers Care Microwave Oven Assembler Name Role Phone Greg Patterson MD Primary Care Prov ider Reason for Visit * Reason Onset Date Comments Results 08/13/2023 Encounter Details Date Type Department Care Team ([facility] st Contact Info) Description 08/13/2023 Telephone [facility] MEDICINE [address] [place] [address] Greg Patterson MD [address] [place] [address] Results Social History Tobacco Use Types Packs/Day Years Used Date Smoking Tobacco: Never Smokeless Tobacco: Never Alcohol Use Standard Drinks/Week Comments Never 0 (1 standard drink = 0.6 oz pur e alcohol) Depression Answer Date Recorded Patient Health Questionnaire-9 Score 0 07/02/2023 Patient Health Questionnaire-9 Score 0 07/02/2023 Last PHQ-9: Questionnaire Data Not on file 0 07/02/2023 Housing Stability Answer Date Recorded What is your housing situation today? I have chaya boyd 07/02/[address] you li ve. Do you have problems with any of the following? None of the above 07/02/2023 Food Insecurity Answer Date Recorded Within the past 12 months, y ou worried that your food would run out before you got money to buy more: Never True 07/02/2023 Within the past 12 months,th e food you bought just didn't last and you didn't have enough money to get more: Never True Transportation Answer Date Recorded In the past 12 months, has l ack of transportation kept you from medical appts, meetings, work or from getting things needed for daily living? No 07/02/2023 Utilities Answer Date Recorded In the past 12 months, has t he electric, gas, oil or water company threatened to shut off services in your home? No 07/02/2023 Depression Answer Date Recorded Patient Health Questionnaire-2 Score 0 07/02/2023 Comments Unknown Sex and Gender Information Value Date Recorded Sex Assigned at Female 01/08/2022 10:14 AM EDT Legal Sex Female 10:14 AM EDT Gender Identity Choose not to disclose 10:14 AM EDT Sexual Orientation Choose not to disclose 2021 10:14 AM EDT documented as of this encounter Miscellaneous Notes * Telephone Encounter - Keila Sorenson - 08/13/2023 10:57 AM EDT Tc from pt requesting call back with results from 07/03 documented in this encounter Plan of Treatment Upcoming Encounters Date Type Department Care Team (Late st Contact Info) Description 06/01/2024 11:15 AM EDT Telemedicine [facility] MED & PEDS [address] [place] [address] Greg Patterson MD [address] [place] [address] documented as of this encounter Visit Diagnoses Not on filedocumented in this encounter Additional Health Concerns Assessment Noted Time PHQ-9 Depression Total Score: 0 07/02/19 24 10:41 AM EDT documented as of this encounter Care Teams Microwave Oven Assembler Relationship Specialty Start Date End Date Greg Patterson MD [address] [place] [address] PCP - General Internal Medicine 08/09/19 documented as of this encounter
--- OUTSIDE RECORDS SUMMARY | 2024-05-06 11:19 | XMS_ITS | Encounter Summary ---
Author Organization [employer] Address [address] [place] [address] Care Team Providers Care Order Processor Name Role Phone Greg Patterson MD Primary Care Prov ider Reason for Visit * Reason Onset Date Comments Nurse Triage 05/04/2024 Encounter Details Date Type Department Care Team ([facility] Contact Info) Description 05/04/2024 Telephone [facility]EDS [address] [place], [place] [phone] Greg Patterson MD [address] [place] [address] Nurse Triage Social History Tobacco Use Types Packs/Day Years [...] encounter Miscellaneous Notes * Telephone Encounter - Yola Young RN - 05/04/2024 1:31 PM EST called pt to triage, spoke to pt. through [facility] Coord[facility]. pt states intermittent dizziness and requesting labs to be done for evaluation pt denies current illness symptoms, fevers, rash, sob, vomiting, or other associated symptoms. given tele appt with PCP to discuss possible labs. advised home care: rest, fluids, lie down, fall precautions, and call back as needed. pt understands and agrees with plan. insurance verified. Protocol Used: Dizziness (Adult) Protocol-Based Disposition: See in Office or Video Visit within 3 Days Positive Triage Question: * Mild dizziness (e.g., walking normally) and has NOT been evaluated by physician for this (Exception: Dizziness caused by heat exposure, sudden standing, or poor fluid intake.) * All higher-acuity triage questions were negative Care Advice Discussed: * Reassurance and Education - Dizziness From Not Drinking Enough Liquids * Drink Fluids * Lie Down and Rest * Cool Off * Prevention - Dizziness * Reasons To Call Back - After 2 hours of rest and fluids and you are still feeling dizzy - You pass out (faint) or are too weak to stand - You become worse * Telephone Encounter - Oxana Maldonado RN - 05/04/2024 12:47 PM EST Called pt. Needs barrel rifler called back Via S barrel rifler , Co worker Nurse states call is done.I will disconnect from Pharmacy Benefit Manager as I am currently on hold and have not initiated the call. * Telephone Encounter - Sujye Godfrey - 05/04/2024 11:50 AM EST Symptom: Dizziness Outcome: Schedule an appointment to be seen within 24 hours Reason: Caller denied all higher acuity questions Pt does not have symptoms at the moment but is concern because she has never experience back to back symptoms. Pt would also like to get labs done incase. documented in this encounter Plan of Treatment Upcoming Encounters Date Type Department Care Team (Late st Contact Info) Description 06/01/2024 11:15 AM EDT Telemedicine [facility] MED & PEDS [address] [place] [address] Greg Patterson MD [address] [place] [address] documented as of this encounter Visit Diagnoses Not on filedocumented in this encounter Additional Health Concerns Assessment Noted Time PHQ-9 Depression Total Score: 0 07/02/19 24 10:41 AM EDT documented as of this encounter Care Teams Order Processor Relationship Specialty Start Date End Date Greg Patterson MD [address] [place] [address] PCP - General Internal Medicine 08/09/19 documented as of this encounter
--- OUTSIDE RECORDS SUMMARY | 2024-05-06 11:19 | XMS_ITS | Encounter Summary ---
Author Organization [employer] Address [address] [place] [address] Care Team Providers Care Template Layout Worker Name Role Phone Greg Patterson MD Primary Care Prov ider Encounter Details Date Type Department Care Team ([facility] st Contact Info) Description 05/04/2024 2:30 PM EST Telemedicine [facility]EDS [address] [place], [place] [phone] Greg Patterson MD [address] [place], [place] [phone] Iron deficiency anemia due to chronic blood loss (Primary Dx); Pre-diabetes; Vitamin D deficiency Social History Tobacco Use Types Packs/Day Years [...] AM EDT documented as of this encounter Progress Notes * Greg aCmeron MD - 05/04/2024 2:30 PM EST Subjective Patient ID: Myriam Beltre is a 54 y.o. adult who presents for No chief complaint on file.. Dizziness This is a new problem. Pertinent negatives include no chills, congestion, coughing, nausea, visual change, vomiting or weakness. Review of Systems Constitutional: Negative for chills. HENT: Negative for congestion. Respiratory: Negative for cough. Gastrointestinal: Negative for nausea and vomiting. Neurological: Positive for dizziness. Negative for weakness. Objective Physical Exam Neurological: General: No focal deficit present. Mental Status: Myriam is oriented to person, place, and time. Psychiatric: Mood and Affect: Mood normal. Behavior: Behavior normal. Assessment/Plan Problem List Items Addressed This Visit Vitamin D deficiency Relevant Orders Vitamin D, 25-Hydroxy, Total, Immunoassay Iron deficiency anemia due to chronic blood loss - Primary Relevant Orders Iron And Total Iron Binding Capacity Vitamin B12 (Cobalamin) and Folate Panel, Serum Pre-diabetes Patient refers last weekend she suffered a episode of dizziness, she has hx of prediabetes, will check A1c and order blood work for evaluation Relevant Orders CBC auto differential Comprehensive Metabolic Panel Hemoglobin A1c Lipid Panel, Standard TSH W/Reflex to FT4 documented in this encounter Miscellaneous Notes * Assessment & Plan Note - Greg Cameron MD - 05/04/2024 3:09 PM ESTAssociated Problem(s): Pre-diabetes Patient refers last weekend she suffered a episode of dizziness, she has hx of prediabetes, will check A1c and order blood work for evaluation documented in this encounter Plan of Treatment Upcoming Encounters Date Type Department Care Team (Late st Contact Info) Description 06/01/2024 11:15 AM EDT Telemedicine [facility] MED & PEDS [address] [place], [place] [phone] Greg Patterson MD [address] [place] [address] Scheduled Orders Name Type Priority Associated Diagnoses Orde r Schedule CBC auto differential Lab Routine Pre-diabetes Expected: 05/04/2024 (Approximate), Expires: 05/04/2025 Comprehensive Metabolic Panel Lab Routine Pre-diabetes Expected: 05/04/2024 (Approximate), Expires: 05/04/2025 Hemoglobin A1c Lab Routine Pre-diabetes Expected: 05/04/2024 (Approximate), Expires: 05/04/2025 Lipid Panel, Standard Lab Routine Pre-diabetes Expected: 05/04/2024 (Approximate), Expires: 05/04/2025 TSH W/Reflex to FT4 Lab Routine Pre-diabetes Expected: 05/04/2024 (Approximate), Expires: 05/04/2025 Iron And Total Iron Binding Capacity Lab Routine Iron deficiency anemia due to chronic blood loss Expected: 05/04/2024, Expires: 05/04/2025 Vitamin B12 (Cobalamin) and Folate Panel, Serum Lab Routine Iron deficiency anemia due to chronic blood loss Expected: 05/04/2024 (Approximate), Expires: 05/04/2025 Vitamin D, 25-Hydroxy, Total, Immunoassay Lab Routine Vitamin D deficiency Expected: 05/04/2024 (Approximate), Expires: 05/04/2025 documented as of this encounter Visit Diagnoses Diagnosis Iron deficiency anemia due to chronic blood loss- Primary Iron deficiency anemia secondary to blood loss (chronic) Pre-diabetes Other abnormal glucose Vitamin D deficiency documented in this encounter Additional Health Concerns Assessment Noted Time PHQ-9 Depression Total Score: 0 07/02/19 24 10:41 AM EDT documented as of this encounter Care Teams Template Layout Worker Relationship Specialty Start Date End Date Greg Patterson MD [address] [place] [id number] PCP - General Internal Medicine 08/09/19 documented as of this encounter
--- OUTSIDE RECORDS SUMMARY | 2024-05-06 11:19 | XMS_ITS | Encounter Summary ---
Author Organization [employer] Address [address] [place] [address] Care Team Providers Care Supervisor Tumbling And Rolling Name Role Phone Greg Patterson MD Primary Care Prov ider Encounter Details Date Type Department Care Team (Latest Contact Info) Description 05/04/2024 Travel Social History Tobacco Use Types Packs/Day Years [...] AM EDT documented as of this encounter Plan of Treatment Upcoming Encounters Date Type Department Care Team (Late st Contact Info) Description 06/01/2024 11:15 AM EDT Telemedicine [facility] [address] [place] [address] Greg Patterson MD [address] [place] [address] documented as of this encounter Visit Diagnoses Not on filedocumented in this encounter Additional Health Concerns Assessment Noted Time PHQ-9 Depression Total Score: 0 07/02/19 24 10:41 AM EDT documented as of this encounter Care Teams Supervisor Tumbling And Rolling Relationship Specialty Start Date End Date Greg Patterson MD [address] [place] [address] PCP - General Internal Medicine 08/09/19 documented as of this encounter
--- OUTSIDE RECORDS SUMMARY | 2024-05-06 11:19 | XMS_ITS | Clinical Summary ---
Author Organization [employer] Address [address] [place] [address] Care Team Providers Care City Supervisor Name Role Phone Greg Patterson MD Primary Care Prov ider Allergies No known active allergies Medications cholecalciferol (Vitamin D-3) 25 MCG (1000 UT) tablet take 1 tablet by oral route every day 2 Active docusate sodium (Colace) 100 MG capsule take 1 capsule by oral route 2 times every day as needed for constipation with iron supplement 1 Active Active Problems Problem Noted Date Diagnosed Date Pre-diabetes 10/08/2023 Assessment & Plan (05/04/2024 3:09 PM EST): Patient refers last weekend she suffered a episode of dizziness, she has hx of prediabetes, will check A1c and order blood work for evaluation Assessment & Plan (10/08/2023 4:12 PM EDT): Told to decrease diet rich in carbohydrate and eliminate sugar, follow up in 3 months Screening for colon cancer 04/04/2023 Assessment & Plan (04/04/2023 10:57 AM EST): Done on 09/2020 to be repeated in 5 years Carpal tunnel syndrome of left wrist 10/12/2022 Assessment & Plan (04/04/2023 11:09 AM EST): Will order left wrist splint to be worn at night, will send ibuprofen to be taken as needed Assessment & Plan (01/02/2023 4:20 PM EDT): EMG not done will reorder, she continues with tingling sensation on her left finger Assessment & Plan (10/12/2022 11:59 AM EDT): Patient with left hand finger tingling, will order a EMG for evaluation Physical exam 04/17/2022 Assessment & Plan (04/17/2022 10:28 PM EST): Unremarkable physical exam Colonoscopy due on 2025 Pap smear due on 2025 Mammogram due on 07/2022 Iron deficiency anemia due to chronic blood loss 04/17/2022 Assessment & Plan (10/08/2023 4:09 PM EDT): Hemoglobin stable, continue diet rich in iron, no changes will be made Assessment & Plan (09/26/2023 8:28 AM EDT): Will order new labs for guidance of therapy, no bleeding reported Assessment & Plan (01/02/2023 4:19 PM EDT): Currently asymptomatic, will place new lab orders for follow up Assessment & Plan (10/12/2022 11:57 AM EDT): Asymptomatic, will monitor in 3 months Assessment & Plan (04/17/2022 10:27 PM EST): Will order new labs for guidance of therapy, denied further episode of prolonged vaginal bleeding Dysmenorrhea 02/10/2018 Vitamin D deficiency 02/10/2018 Assessment & Plan (04/04/2023 11:09 AM EST): Will order new vitamin for guidance of therapy Assessment & Plan (04/17/2022 10:27 PM EST): Will order new labs for guidance of therapy Encounters Date Type Department Care Team Description 05/04/2024 2:30 PM EST Telemedicine [facility] [address] [place] [address] Greg Patterson MD Iron deficiency anemia due to chronic blood loss (Primary Dx); Pre-diabetes; Vitamin D deficiency 05/04/2024 Travel 05/04/2024 Telephone [facility] [address] [place] [address] Greg Patterson MD Nurse Triage from Last 3 Months Immunizations Name Administration Dates Next Due Influenza injectable quadriv alent IIV4 with preservative 12/03/2016,11/23/2014 Influenza, IIV3, injectable 12/01/2013 Moderna Covid-19 Vaccine 12+ 07/15/2020,06/18/19 21 Moderna Covid-19 Vaccine 6+ Bivalent 04/04/2022 Tdap 04/17/2022,01/14/2014 Zoster, Recombinant 06/21/2021,03/22/2021 Social History Tobacco Use Types Packs/Day Years Used Date Smoking Tobacco: Never Smokeless Tobacco: Never Tobacco Cessation:Counseling Given: Not Answered Alcohol Use Standard Drinks/Week Comments Never 0 [...] not to disclose 2021 10:14 AM EDT Last Filed Vital Signs Vital Sign Reading Time Taken Comments Blood Pressure 132/88 04/17/2022 9:14 AM EST Pulse 76 04/17/2022 9:14 AM EST Temperature 37.1 ??C (98.7 ??F) 04/17/2022 9:14 AM ES T Respiratory Rate 20 04/17/2022 9:14 AM EST Oxygen Saturation - - Inhaled Oxygen Concentration - - Weight 93 kg (205 lb) 09/06/2022 1:33 PM EDT Height 167.6 cm (5' 6 ) 09/06/2022 1:33 PM EDT Body Mass Index 33.09 09/06/2022 1:33 PM EDT Plan of Treatment Upcoming Encounters Date Type Department Care Team (Late st Contact Info) Description 06/01/2024 11:15 AM EDT Telemedicine [facility] [address] [place] [address] JansenGreg Hernandez MD [address] [place] [address] Health Maintenance Due Date Last Done Comments CT Colonography 1971 FIT DNA/Cologuard 1971 FIT 1971 FOBT 1971 Sigmoidoscopy 1971 Hepatitis B Vaccines (1 of 3 - 19+ 3-dose series) 1990 Pneumococcal Vaccine: 50+ Years (1 of 1 - PCV) 2021 COVID-19 Vaccine ( - season) 2023 04/04/2022, 07/15/2020, 06/17/2020 Influenza Vaccine (#1) 2023 7, 11/23/2014, 12/01/2013 Tobacco Screening 01/03/2024 01/02/2023 Depression Screening 07/01/2024 07/02/2023, 07/02/19 24 SDOH Screening 07/01/2024 07/02/2023 Alcohol/Substance Use Screening 05/04/2025 05/04/2024 Cervical Cancer Screening 07/05/2025 Pap Smear 07/05/2025 07/05/2020 HPV/Cotest 09/14/2025 09/14/2020, 07/0 09/2020, 07/05/2020 Colonoscopy 09/27/2025 09/27/2020 Colorectal Cancer Screening 09/27/2025 Mammogram 10/01/2025 10/02/2023, 09/08, 05/21/2020, Additional history exists DTaP/Tdap/Td Vaccines (3 - Td or Tdap) 04/17/2032 04/17/2022, 01/14/2014 RSV Patients and Patients Aged 60 years or older (1 - 1-dose 75+ series) 2046 Zoster Vaccines Completed 06/21/2021, 03/22/2021 HIV Screening Completed 04/17/2022 Hepatitis C Screening Completed 04/17/2022 HIB Vaccines Aged Out No longer eligi ble based on patient's age to complete this topic HPV Vaccines Aged Out No longer eligi ble based on patient's age to complete this topic Hepatitis A Vaccines Aged Out No long er eligible based on patient's age to complete this topic IPV Vaccines Aged Out No longer eligi ble based on patient's age to complete this topic Meningococcal Vaccine Aged Out No mary rogelio eligible based on patient's age to complete this topic RSV under 20 months Aged Out No longe r eligible based on patient's age to complete this topic Rotavirus Vaccines Aged Out No longer eligible based on patient's age to complete this topic Procedures Procedure Name Priority Date/Time Associated Diagnosis Comments BI MAMMOGRAM SCREENING TOMOSYNTHESIS BILATERAL Routine 10/02/2023 3:10 PM EDT HEPATITIS C AB W/REFL TO HCV RNA, QN, PCR Routine 04/17/2022 9:49 AM EST Physical exam HIV 1 RNA, QN PCR W/RFL TO (RTI,PI,INTEGRASE) Routine 04/17/2022 9:49 AM EST Physical exam HM COLONOSCOPY Routine 09/27/2020 8:40 AM EDT ZZZ HISTORICAL HPV E6/E7 RFLX TO 16 18/45 Routine 09/14/2020 3:54 PM EDT THINPREP PAP Routine 07/05/2020 10:42 AM EDT from Last 3 Months or Most Recently Relevant to Health Maintenance Results * BI Mammogram Screening Tomosynthesis Bilateral (10/02/2023 3:10 PM EDT) Anatomical Region Laterality Modality Breast Bilateral Mammography 10/02/2023 3:10 PM EDT Narrative 10/23/2023 11:03 PM EDT ? [facility] ? [address] ?[place] [address] ? Mammography Report ? Signed ? Patient: Patt,Myriam ?MR#: [id number] ? : 1970 ?Acct:[id number] ? Age/Sex: 53 / F ?ADM Date: 10/02/23 ? Loc: HO.MAMMO ? Attending Dr: Greg Cameron MD ? Ordering Physician: Greg Patterson MD ?Res ?? ults: 1Negative ? Date of Service: 10/02/23 ?Follow Up: 1 Year From Orig ?? inal Mammogram ? Procedure(s): MM tomosynthesis screening BI ?? Accession Number(s): [id number] ? cc: Greg Patterson MD ? EXAMINATION: ?? MM SCREENING DIGITAL BREAST TOMOSYNTHESIS, BILATERAL ? CLINICAL INFORMATION: ? Screening. Asymptomatic. ? COMPARISON: ?? Mammography: This study is compared with prior exams dating back to ?? 2020. ? TECHNIQUE: ?? Digital breast tomosynthesis is performed in both the craniocaudal and ?? mediolateral oblique views along with computer-aided detection (CAD). ?? Synthesized 2D images are generated from the tomosynthesis. ? FINDINGS: ?? The breasts are almost entirely fatty (ACR BI-RADS breast composition ?? Category a). ? There are no significant masses, abnormal calcifications, or other ?? abnormalities. ? MM/MM tomosynthesis screening BI ?? IMPRESSION: ?? No mammographic evidence of malignancy. ? ASSESSMENT: ? BI-RADS BI-RADS 1 - Negative ? RECOMMENDATION: ?? Routine annual mammography screening. ? 1 year F/U ? This examination should not preclude the clinical evaluation of a ?? suspicious palpable abnormality. ? This patient's information was entered into a reminder system with a ?? target due date for their next mammogram. ? Dictated By: ?Barbara Pelayo MD ? Signed By: ?<Electronically signed by Barbara Pelayo MD in OV> ? 10/23/23 2259 ? DD/ 1510 ? TD/TT: ? Data Entry Technician: ? Procedure Note Shanita Boles - 10/23/2023 [facility] [address] [place], [place] [address] Mammography Report Signed Patient: Myriam BeltreMR#: [id number] : 1970Acct:[id number] Age/Sex: 53 / FADM Date: 10/02/23 Loc: HO.MAMMO Attending Dr: Greg Cameron MD Ordering Physician: Greg Patterson ults: 1Negative Date of Service: 10/02/23Follow Up: 1 Year From Orig ina Mammogram Procedure(s): MM tomosynthesis screening BI Accession Number(s): [id number] cc: Greg Patterson MD EXAMINATION: MM SCREENING DIGITAL BREAST TOMOSYNTHESIS, BILATERAL CLINICAL INFORMATION: Screening. Asymptomatic. COMPARISON: Mammography: This study is compared with prior exams dating back to 2020. TECHNIQUE: Digital breast tomosynthesis is performed in both the craniocaudal and mediolateral oblique views along with computer-aided detection (CAD). Synthesized 2D images are generated from the tomosynthesis. FINDINGS: The breasts are almost entirely fatty (ACR BI-RADS breast composition Category a). There are no significant masses, abnormal calcifications, or other abnormalities. MM/MM tomosynthesis screening BI IMPRESSION: No mammographic evidence of malignancy. ASSESSMENT: BI-RADS BI-RADS 1 - Negative RECOMMENDATION: Routine annual mammography screening. 1 year F/U This examination should not preclude the clinical evaluation of a suspicious palpable abnormality. This patient's information was entered into a reminder system with a target due date for their next mammogram. Dictated By: Barbara Pelayo MD Signed By: <Electronically signed by Barbara Pelayo MD in OV> 10/23/23 2131 DD/ 1510 TD/TT: Data Entry Technician: Greg Cameron MD IMG BI PROCEDURES Final Result * HIV-1 RNA, Quantitative, Real-Time PCR with Reflex to Genotype (RTI, PI, Integrase) (04/17/2022 9:49 AM EST) HIV 1 RNA, QN PCR NOT DETECTED copies/mL [facility], HIV 1 RNA, QN PCR NOT DETECTED Log copies/mL [facility], Comment: REFERENCE RANGE: NOT DETECTED copies/mL ?NOT DETECTED ??Log copies/mL This test was performed using Real-Time Polymerase Chain Reaction. Reportable range is 20 to 10,000,000 copies/mL (1.30-7.00 Log copies/mL). 04/17/2022 9:49 AM EST 04/17/2022 9:50 AM EST Narrative [facility] - 04/20/2022 11:15 PM EST FASTING:YES FASTING: YES Greg Cameron MD LAB BLOOD ORDERABL ES Final Result Performing Organization Address [facility]/ZIP Co de Phone Number [employer] [address] [place] [address], [place] [address] [facility], [address] [place] [address] * Hepatitis C Antibody with Reflex to HCV, RNA, Quantitative, Real-Time PCR (04/17/2022 9:49 AM EST) Pathologist [facility] Hepatitis C Antibody NON-REACT MARY NON-REACT MARY [facility] Index <0.02 <1.00 [facility] Comment: HCV antibody was non-reactive. There is no laboratory evidence of HCV infection. In most cases, no further action is required. However, if recent HCV exposure is suspected, a test for HCV RNA (test code 21013) is suggested. For additional information please refer to http://education.Carlotz/faq/KUO56r0 (This link is being provided for informational/ educational purposes only.) Blood Venous blood specimen / Unknown 04/17/2022 9:49 AM EST 04/17/2022 9:50 AM EST Narrative [facility] - 04/20/2022 11:15 PM EST FASTING:YES FASTING: YES Greg Cameron MD LAB BLOOD ORDERABL ES Final Result Performing Organization Address [facility]/ZIP Co de Phone Number [employer] [address] [place] [address], [place] [address] [facility] [employer] [address] [place] [address], (Nl2) [place] [address] * Hm Colonoscopy (09/27/2020 8:40 AM EDT) Historical Provider HEALTH MAINTENANCE Final Result * HPV E6/E7 RFLX TO 16 18/45 (09/14/2020 3:54 PM EDT) Pathologist [facility] HPV 16 RNA TNP [facility] HPV 18/45 RNA [facility]NP [facility] HPV E6 E7 ADD TNP [facility] HPV mRNA E6/E7 rflx Not Detected Not Detected [facility] Comment: Methodology: Brine Tank Operator-Mediated Amplification This assay detects E6/E7 viral messenger RNA (mRNA) from 14 high-risk HPV types (16,18,31,33,35,39,45,51,52,56,58,59,66,68). The analytical performance characteristics of this assay have been determined by [facility]. The modifications have not been cleared or approved by the FDA. This assay has been validated pursuant to the CLIA regulations and is used for clinical purposes. For additional information, please refer to http://education.Carlotz/faq/WDQ485p4 (This link if provided for information/ educational purposes only.) THIS TEST WAS PERFORMED AT: [facility] [address] [place] [address] [address] [place], [place] ??[address] FIDE STEVENS MD 09/14/2020 3:54 PM EDT Daniel Nolan MD HISTORICAL/NON ORDERABLE LABS Fi nal Result [facility] [address] * THINPREP PAP (07/05/2020 10:42 AM EDT) Pathologist [facility] Clinical Information: None given [facility] COMMENT SEE COMMENT [facility] Comment: EXPLANATORY NOTE: ? The Pap is a screening test for cervical cancer. It is ?? not a diagnostic test and is subject to false negative ?? and false positive results. It is most reliable when a ?? satisfactory sample, regularly obtained, is submitted ?? with relevant clinical findings and history, and when ?? the Pap result is evaluated along with historic and ?? current clinical information. ?? Cloth Packer : SEE COMMENT [facility] Comment: DCR, CT(ASCP) CT screening location: [address] ??[address] Interpretation/R esult: Negative for intraepithelial lesion or malignancy. [facility] LMP: 06/24/20 [facility] Prev. BX: NONE GIVEN [facility] Prev. PAP: NONE GIVEN [facility] SOURCE: None given [facility] Statement Of Adequacy: SEE COMMENT [facility] Comment: Satisfactory for evaluation. Endocervical/transformation zone component absent. 07/05/2020 10:4 2 AM EDT us Jamaica Carpenter CNM LAB PATHOLOGY ORDERABLES Final Result [facility] [address] from Last 3 Months or Most Recently Relevant to Health Maintenance Insurance [facility] , [address] [place] [address] Care Teams City Supervisor Relationship Specialty Start Date End Date JansenGreg Hernandez MD [address] [place] [address] [place] [address] PCP - General Internal Medicine 08/09/19
--- OUTSIDE RECORDS SUMMARY | 2024-05-06 11:20 | XMS_ITS | Encounter Summary ---
Author Organization [employer] Address [address] [place] [address] Care Team Providers Care Traveling Engineer Name Role Phone Greg Patterson MD Primary Care Prov ider Reason for Visit * Reason Onset Date Comments Results 03/18/2023 Encounter Details Date Type Department Care Team ([facility] Contact Info) Description 03/18/2023 Telephone [facility] [address] [place], [place] [phone] Greg Patterson MD [address] [place] [address] Results Social History Tobacco Use Types Packs/Day Years Used Date Smoking Tobacco: Never Smokeless Tobacco: Never Alcohol Use Standard Drinks/Week Comments Never 0 (1 standard drink = 0.6 oz pur e alcohol) Depression Answer Date Recorded Patient Health Questionnaire-9 Score 0 04/17/2022 Housing Stability Answer Date Recorded What is your housing situation today? I have chayanemesio boyd 12/24/[address] you li ve. Do you have problems with any of the following? None of the above 12/24/2022 Food Insecurity Answer Date Recorded Within the past 12 months, y ou worried that your food would run out before you got money to buy more: Never True 12/24/2022 Within the past 12 months,th e food you bought just didn't last and you didn't have enough money to get more: Never True Transportation Answer Date Recorded In the past 12 months, has l ack of transportation kept you from medical appts, meetings, work or from getting things needed for daily living? No 12/24/2022 Utilities Answer Date Recorded In the past 12 months, has t he electric, gas, oil or water company threatened to shut off services in your home? No 12/24/2022 Depression Answer Date Recorded Patient Health Questionnaire-2 Score 0 04/17/2022 Comments Unknown Sex and Gender Information Value Date Recorded Sex Assigned at Female 01/08/2022 10:14 AM EDT Legal Sex Female 10:14 AM EDT Gender Identity Choose not to disclose 10:14 AM EDT Sexual Orientation Choose not to disclose 2021 10:14 AM EDT documented as of this encounter Miscellaneous Notes * Telephone Encounter - Maryjo Dyer RN - 04/04/2023 11:00 AM EST Pt currently being seen by PCP. * Telephone Encounter - Maryjo Dyer RN - 03/18/2023 3:49 PM EST Pt requesting EMG report scanned in chart from January 2023. Please review and advise on further POC. * Telephone Encounter - Richard Ramey - 03/18/2023 1:55 PM EST Tc from pt requesting results done on 2022 for a hand Analysis. Please contact pt @ [phone] documented in this encounter Plan of Treatment Upcoming Encounters Date Type Department Care Team (Late st Contact Info) Description 06/01/2024 11:15 AM EDT Telemedicine [facility] [address] [place] [address] Greg Patterson MD [address] [place] [address] documented as of this encounter Visit Diagnoses Not on filedocumented in this encounter Additional Health Concerns Assessment Noted Time PHQ-9 Depression Total Score: 0 04/17/19 23 9:36 AM EST documented as of this encounter Care Teams Traveling Engineer Relationship Specialty Start Date End Date JansenGreg Hernandez MD [address] [place] [address] PCP - General Internal Medicine 08/09/19 documented as of this encounter
--- OUTSIDE RECORDS SUMMARY | 2024-05-06 11:20 | XMS_ITS | Encounter Summary ---
Author Organization [employer] Address [address] [place] [address] Care Team Providers Care Optical Systems Engineer Name Role Phone Greg Patterson MD Primary Care Prov ider Encounter Details Date Type Department Care Team (Late st Contact Info) Description 07/01/2023 Orders Only [facility] [address] [place], [place] [phone] Provider, MD Sanam Social History Tobacco Use Types Packs/Day Years [...] Info) Description 06/01/2024 11:15 AM EDT Telemedicine [facility] [address] [place] [address] Greg Patterson MD [address] [place] [address] documented as of this encounter Procedures Procedure Name Priority Date/Time Associated Diagnosis Comments HM COLONOSCOPY Routine 09/27/2020 8:40 AM EDT documented in this encounter Results * Hm Colonoscopy (09/27/2020 8:40 AM EDT) Historical Provider HEALTH MAINTENANCE Final Result documented in this encounter Visit Diagnoses Not on filedocumented in this encounter Additional Health Concerns Assessment Noted Time PHQ-9 Depression Total Score: 0 04/17/19 23 9:36 AM EST documented as of this encounter Care Teams Optical Systems Engineer Relationship Specialty Start Date End Date Greg Patterson MD [address] [place] [address] PCP - General Internal Medicine 08/09/19 documented as of this encounter
--- OUTSIDE RECORDS SUMMARY | 2024-05-06 11:20 | XMS_ITS | Clinical Summary ---
Author Organization [facility] Address [address] [place] [address] Care Team Providers Care Acid Leveler Name Role Phone Unavailable Primary Care Provider Unavailabl e Social History Tobacco Use Types Packs/Day Years Used Date Smoking Tobacco: Never Assessed Comments Unknown Sex and Gender Information Value Date Recorded Sex Assigned at Not on file Legal Sex Female 2:54 AM EST Gender Identity Not on file Sexual Orientation Not on file Plan of Treatment Health Maintenance Due Date Last Done Comments Breast Cancer Screening 1971 DTaP,Tdap,and Td Vaccines (1 - Tdap) 1990 Hepatitis B Vaccines (1 of 3 - 19+ 3-dose series) 1990 Cervical Cancer Screening: P ap Smear 01/25/1992 Pneumococcal Vaccine: 50+ Ye ars (1 of 1 - PCV) 2021 Zoster Vaccines (1 of 2) 2021 COVID-19 Vaccine (1 - 2023-2 5 season) 2023 Influenza Vaccine (#1) 2023 Colorectal Cancer Screening: Colonoscopy 12/31/2023 Depression Screening 12/31/2023 HIV Screening 12/31/2023 Hepatitis C Screening 12/31/2023 Social Influencers of Health Screening 12/31/2023 HIB Vaccines Aged Out No longer eligi [...] on patient's age to complete this topic MMR Vaccines Aged Out No longer eligi ble based on patient's age to complete this topic Meningococcal ACWY Vaccine Aged Out N o longer eligible based on patient's age to complete this topic Meningococcal B Vacine Aged Out No lo nger eligible based on patient's age to complete this topic Pneumococcal Vaccine: Pediat rics (0 to 5 Years) and At-Risk Patients (6 to 64 Years) Aged Out No longer eligible b ased on patient's age to complete this topic RSV Immunization Patients Un kajal 20 months Aged Out No longer eligible b ased on patient's age to complete this topic Varicella Vaccines Aged Out No longer eligible based on patient's age to complete this topic
[2024-05-06 14:25] LABS: MANUAL DIFF FLAG NO
[2024-05-06 14:30] LABS: Basophils Percent Auto 0.7 % (0-2); Eosinophils Absolute Auto 0.2 X10*3/uL (0.0-0.4); Eosinophils Percent Auto 3.5 % (0-4); Hematocrit 40.3 % (37.0-47.0); Hemoglobin 13.1 g/dl (12.0-16.0); Imm Gran Abs Auto 0.02 X10*3/uL (0.00-0.03); Imm Gran Pct Auto 0.3 % (0.0-0.4); Lymphocytes Percent Auto 32.8 % (20-40); Mean Corpuscular HGB Conc 32.5 g/dl (31.0-35.0); Mean Corpuscular Hemoglobin 28.4 pg (27.0-33.0); Mean Corpuscular Volume 87.4 fL (80.0-98.0); Mean Platelet Volume 11.1 fL (9.4-12.3); Monocytes Absolute Auto 0.5 X10*3/uL (0.1-1.2); Monocytes Percent Auto 7.7 % (2-11); Neutrophils Absolute Auto 3.3 x10*3/uL (2.0-8.3); Platelet Count 319 X10*3/uL (160-400); Red Blood Count 4.61 X10*6/uL (4.20-5.50); Red Cell Distribution Width 13.1 % (11.0-16.0)
[2024-05-06 14:39] LABS: Estimated Average Glucose 137 mg/dL; Hemoglobin A1c % 6.4 % (<6.0)
[2024-05-06 14:55] LABS: Alanine Aminotransferase 19 U/L (0-31); Albumin Level 4.3 g/dL (3.5-5.0); Alkaline Phosphatase 59 U/L (39-117); Anion Gap 12 (12-20); Aspartate Amino Transferase 26 U/L (5-31); Bilirubin Total 0.8 mg/dL (0.0-1.0); Blood Urea Nitrogen 13 mg/dL (9-16); Calcium 9.3 mg/dL (8.4-10.2); Carbon Dioxide 26 mmol/L (22-29); Chloride 108 mmol/L (96-108); Cholesterol 175 mg/dL (<200); Estimated Glomerular Filt Rate > 60; Glucose Random 114 mg/dL (60-115); HDL Cholesterol 40 mg/dL (>40); Iron 104 mcg/dL (30-160); LDL Cholesterol Calculated 102 mg/dL (<100); Percent Iron Saturation 34 % (15-50); Sodium 142 mmol/L (135-145); Total Iron Binding Capacity 310 mcg/dL (228-428); Total Protein 7.5 g/dL (6.5-8.0); Triglycerides 169 mg/dL (<150); Unsaturated Iron Binding 206 ug/dL
[2024-05-06 14:59] LABS: TSH reflex Free T4 1.48 uIU/mL (0.32-4.0); Vitamin D 25-OH Total 103.6 ng/mL (>30)
[2024-05-06 15:12] LABS: Folate 14.5 ng/mL (> or = 4.0); Vitamin B12 493 pg/mL (200-900)
== END 2024-05-06 09:44 | disposition home or self-care (01) ==
LOC: HO.CHCLDS 09:43
PROVIDERS: Visit Provider Internal Medicine
DX: R73.03 Prediabetes (principal); D50.0 Iron deficiency anemia secondary to blood loss (chronic); E55.9 Vitamin D deficiency, unspecified
CPT/HCPCS: 36415; 80053; 80061; 82306; 82607; 82746; 83036; 83540; 84443; 85025

== ENCOUNTER 2024-09-18 09:52 | Outpatient (AMB) | payer OTHER, SELFPAY ==
--- NOTE | 2024-09-18 09:56 | MHC.OFFVIS ---
Vital Signs 09/18/24 09:57 Height 5 ft 6 in Weight 220 lb 7.396 oz BMI 35.6 BP 110/70 Blood Pressure Location Lt brachial Position Sitting Pulse 89 Intake Visit Reasons: yearly follow up Intake Note: Myrima presents in the office as a yearly follow up. CC: No concerns today! Mds Coordinator Required: Yes Allergies No Known Allergies Allergy (Verified 09/18/24 09:57) HPI HPI yearly follow up: Details: LAST VISIT: Constipation Plan Continue Linzess. Increase fluid intake and activity to promote better bowel motility. Follow-up in 1 year. Patient will call our office sooner if she will have any GI concerning symptoms. She is agreeable to this plan and verbalizes understanding of instructions. She was given the opportunity to ask questions and all questions answered. ? Thank you for allowing me to participate in her care Refilled linaclotide (Linzess) 145 mcg PO DAILY 90 caps 4RF K59.04 TODAY'S VISIT Patient is here today for follow-up. Patient reports that she has been doing well. Denies any GI concerning symptoms. Denies dyspepsia, dysphagia or odynophagia. Denies melena, hematochezia, unintentional weight loss or ribbon like stools. Patient will be due for colonoscopy in September of 2025. Patient reports that she has been taking Linzess and has been working well for her. Denies any abdominal pain or discomfort. Moving her bowels daily. [facility] Medical History Lipoma of both lower extremities Constipation Anemia Surgical History History of esophagogastroduodenoscopy (EGD) Hx of colonoscopy H/O hernia repair Hx of breast reduction, elective Social History Alcohol intake: never Comment: medicated in PACU Patient Tobacco Use Status: Never used Tobacco Second Hand Smoke Exposure: No Female Reproductive History Menstrual Age of Menarche: 13 Review of Systems Const Denies weight gain and Denies weight loss ENT Reports no additional complaints, Denies dysphagia and Denies odynophagia Card Reports no additional complaints Resp Reports no additional complaints GI Denies abdominal pain, Denies belching, Denies melena, Denies bloating, Denies change in bowel habits, Denies dysphagia, Denies excessive flatus, Denies dyspepsia, Denies heartburn, Denies diarrhea, Denies loose stools, Denies nausea, Denies odynophagia and Denies vomiting Musc Reports no additional complaints Neuro Reports no additional complaints Psych Reports no additional complaints Endo Reports no additional complaints Physical Exam Vital Signs: Last Vital Signs Pulse 89 09/18/24 09:57 BP 110/70 09/18/24 09:57 BMI result Body Mass Index 35.6 Const General: healthy appearing, no acute distress and well developed Nutritional Appearance: obese Orientation/consciousness: patient oriented x3 Resp Effort & Inspection: normal respiratory effort, able to speak in complete sentences, no tracheal deviation and symmetric chest movement Auscultation: clear to auscultation bilaterally Cardio Rate: regular rate GI Inspection: Yes normal to inspection, No distended and Yes obesity Palpation (GI): Soft to palpation, not firm, nontender and No hepatosplenomegaly present Auscultation: normal bowel sounds General: Yes no CVA tenderness Back/Spine/Pelvis Back: no CVA tenderness Skin General skin exam: elasticity normal, turgor normal and dry skin Neuro General: patient oriented x3 Psych Appearance: grossly normal Mental Status: mental status grossly normal Assessment & Plan Assessment & Plan (1) Constipation: Code(s): K59.00 - Constipation, unspecified Qualifiers: Constipation type: slow transit constipation Qualified Code(s): K59.01 - Slow transit constipation Plan Continue Linzess. Increase fluid intake and activity to promote better bowel motility. Patient will increase fiber in her diet. Due for colonoscopy in September of 2025. Patient will return in 8 months forty will discuss going for colonoscopy then. She will call us if she will have any GI concerning symptoms. Patient is agreeable to plan of care and verbalizes understanding of instructions. She was given the opportunity to ask questions and all questions answered. Thank you for allowing me to participate in her care Medications: New Linzess (linaclotide) 145 mcg PO DAILY 90 caps 4RF NS K59.04 - Chronic idiopathic constipation Coding Level of Care Code Est Pt Level 3 (50276) Diagnoses Slow transit constipation K59.01 Constipation type: slow transit constipation Time Spent (min) 25 Comment 50 minutes spent with patient and additional 10 minutes spent reviewing her records
[2024-09-18 09:57] VITALS: BP 110/70; PULSE 89; BMI 35.6
--- OUTSIDE RECORDS SUMMARY | 2024-09-18 10:16 | XMS_ITS | Clinical Summary ---
Author Organization [employer] Address [address] [place] [address] Care Team Providers Care Mail Technician Name Role Phone Greg Patterson MD Primary [...] Diagnosed Date Pre-diabetes 10/08/2023 Assessment & Plan (06/01/2024 4:58 PM EDT): Encouraged lifestyle modifications, keep low carb/no sugar diet, follow up in [address] [place] [address] Assessment & Plan (05/04/2024 3:09 PM EST): [...] order new labs for guidance of therapy Immunizations Immunization Administration Dates Next Due Influenza injectable quadriv [...] housing situation today? I have chayanemesio boyd 07/02/[address] you [...] 76 04/17/2022 9:14 AM EST Temperature 37.1 C (98.7 F) 04/17/2022 9:14 AM EST Respiratory Rate 20 04/17/2022 9:14 AM EST Oxygen Saturation - - Inhaled Oxygen Concentration - - Weight 93 kg (205 lb) 09/06/2022 1:33 PM EDT Height 167.6 cm (5' 6 ) 09/06/2022 1:33 PM EDT Body Mass Index 33.09 09/06/2022 1:33 PM EDT Plan of Treatment Health Maintenance Due Date Last Done Comments CT Colonography 1971 FIT DNA/Cologuard 1971 FIT 1971 FOBT 1971 Sigmoidoscopy 1971 Disability Screening 1971 Hepatitis B Vaccines (1 of 3 - 19+ 3-dose series) 1990 Pneumococcal Vaccine: 50+ Years (1 of 1 - PCV) 2021 COVID-19 Vaccine ( season) 2023 04/04/2022, 07/15/2020, 06/17/2020 Tobacco Screening 01/03/2024 01/02/2023 Depression Screening 07/01/2024 07/02/2023, 07/02/19 SDOH Screening 07/01/2024 07/02/2023 Influenza Vaccine (#1) 2024 7, 11/23/2014, 12/01/2013 Alcohol/Substance Use Screening 05/04/2025 05/04/2024 Diabetes: Hemoglobin A1C 05/06/2025 025, 07/04/2023, 04/17/2022, Additional history exists Cervical Cancer Screening 07/05/2025 Pap Smear 07/05/2025 07/05/2020 HPV/Cotest 09/14/2025 09/14/2020, 07/0 09/2020, 07/05/2020 Colonoscopy 09/27/2025 09/27/2020 Colorectal Cancer Screening 09/27/2025 Mammogram 10/01/2025 10/02/2023, 07/1 11/2022, 05/21/2020, Additional history exists DTaP/Tdap/Td Vaccines (3 [...] age to complete this topic Meningococcal B Vaccine Aged Out No l onger eligible based on patient's age to complete [...] Procedure Name Priority Date/Time Associated Diagnosis Comments HEMOGLOBIN A1C Routine 05/06/2024 9:44 AM EST Pre-diabetes BI MAMMOGRAM SCREENING TOMOSYNTHESIS BILATERAL Routine 10/02/2023 [...] Recently Relevant to Health Maintenance Results * (ABNORMAL) Hemoglobin A1c (05/06/2024 9:44 AM EST) Hemoglobin A1c 6.4(H) <6.0 % [facility] Comment:Hemoglobin A1C Refer ence Range Adults: 4.8 - 6.0 % Non diabetic: < 6.0 % Goal: < 7.0 %Additional Action Suggested: > 8.0 %Note: Hemoglobin A1c results are invalid for patients with abnormal amounts of HbF. Blood transfusions may impact the HbA1c concentration in the patient sample. Estimated Average Glucose 137 mg/dL [facility] Comment:eAG = Estimated ave rage glucose which is %A1C expressed asaverage glucose, using the formula of the W3A-EkhrcxgQfnfpjw Glucose study (ADAG), Diabetes Care, Vol.31,#8,Oct. 2007 Blood Venous blood specimen / Unknown 05/06/2024 9:44 AM EST 05/06/2024 2:18 PM EST us Greg Cameron MD LAB BLOOD ORDERABL ES Final Result [facility] [address] [place] [phone] * BI Mammogram Screening Tomosynthesis Bilateral (10/02/2023 3:10 PM EDT) Anatomical Region Laterality Modality Breast Bilateral Mammography 10/02/2023 3:10 PM EDT Narrative 10/23/2023 11:03 PM EDT [facility] [address] [place] [address] [place] [address] Mammography Report Signed Patient: Myriam Beltre MR#: [id number] : 1970 Acct:[id number] Age/Sex: 53 / F ADM Date: 10/02/23 Loc: HO.MAMMO Attending Dr: Greg Cameron MD Ordering Physician: Greg Patterson MD Res ults: 1Negative Date of Service: 10/02/23 Follow Up: 1 Year From Orig inal Mammogram Procedure(s): MM tomosynthesis screening BI Accession Number(s): [id number] cc: Gerg Patterson MD EXAMINATION: MM SCREENING DIGITAL BREAST [...] by Barbara Pelayo MD in OV> 10/23/23 2259 DD/ 1510 TD/TT: Punchboard Filling Machine Operator: Procedure Note Donotuseinterpreter, Image - 10/23/2023 [facility] [address] [place] [address] Mammography Report Signed Patient: Myriam Beltre#: [id number] : 1970Acct:[id number] Age/Sex: 53 / FADM Date: 10/02/23 Loc: LAXMI Attending Dr: Greg Cameron MD Ordering Physician: Greg Patterson ults: 1Negative Date of Service: 10/02/23Follow Up: 1 Year From Orig inal Mammogram Procedure(s): MM tomosynthesis screening BI Accession Number(s): [id number] cc: Greg Ptaterson MD EXAMINATION: MM SCREENING DIGITAL BREAST TOMOSYNTHESIS, [...] by Barbara Pelayo MD in OV> 10/23/23 2259 DD/ 1510 TD/TT: Punchboard Filling Machine Operator: Greg Cameron MD IMG BI PROCEDURES Final Result * HIV-1 RNA, Quantitative, Real-Time PCR with Reflex to Genotype (RTI, PI, Integrase) (04/17/2022 9:49 AM EST) HIV 1 RNA, QN PCR NOT DETECTED copies/mL [facility], HIV 1 RNA, QN PCR NOT DETECTED Log copies/mL [facility], Comment: REFERENCE RANGE: NOT DETECTED copies/mL NOT DETECTED Log copies/mL This test was performed using Real-Time Polymerase Chain Reaction. Reportable range is 20 to 10,000,000 copies/mL (1.30-7.00 Log copies/mL). 04/17/2022 9:49 AM EST 04/17/2022 9:50 AM EST Narrative [facility] - 04/20/2022 11:15 PM EST FASTING:YES FASTING: YES Greg Cameron MD LAB BLOOD ORDERABL ES Final Result [facility] [address] [place] [address], [place] [address] [employer], [address] [place] [address] * Hepatitis C Antibody with Reflex to HCV, RNA, Quantitative, Real-Time PCR (04/17/2022 9:49 AM EST) Hepatitis C Antibody NON-REACT MARY NON-REACT MARY [employer] [place] [facility] Index <0.02 <1.00 [employer] [place] [facility] Comment: HCV antibody was non-reactive. There is no laboratory evidence of HCV infection. In most cases, no further action is required. However, if recent HCV exposure is suspected, a test for HCV RNA (test code 14342) is suggested. For additional information please refer to http://education.[employer]/faq/MNI64r5 (This link is being provided for informational/ educational purposes only.) Blood Venous blood specimen / Unknown 04/17/2022 9:49 AM EST 04/17/2022 9:50 AM EST Narrative [facility] - 04/20/2022 11:15 PM EST FASTING:YES FASTING: YES Greg Cameron MD LAB BLOOD ORDERABL ES Final Result Performing Organization Address [facility] Co de Phone Number [facility] [address] [place] [address], [place] [address] [employer] [place] [employer] [address] [place] [address], ([address]) [place] [address] * Hm Colonoscopy (09/27/2020 8:40 AM EDT) Sanam Provider HEALTH MAINTENANCE Final Result * HPV E6/E7 RFLX TO 16 18/45 (09/14/2020 3:54 PM EDT) HPV 16 RNA [facility]NP [facility] HPV 18/45 RNA [facility]NP [facility] HPV E6 E7 ADD [facility]NP [facility] HPV mRNA E6/E7 rflx Not Detected Not Detected [facility] Comment: Methodology: Correctional Officer Captain-Mediated Amplification This assay detects E6/E7 viral messenger RNA (mRNA) from 14 high-risk HPV types (16,18,31,33,35,39,45,51,52,56,58,59,66,68). The analytical performance characteristics of this assay have been determined by [employer] The modifications have not been cleared or approved by the FDA. This assay has been validated pursuant to the CLIA regulations and is used for clinical purposes. For additional information, please refer to http://education.Typo Keyboards/faq/KDG075t5 (This link if provided for information/ educational purposes only.) THIS TEST WAS PERFORMED AT: [employer] [address] [place] [address],[place] [address] FIDE STEVENS MD 09/14/2020 3:54 PM EDT Daniel Nolan MD HISTORICAL/NON ORDERABLE LABS Fi nal Result [facility] [address] [place] [address], * THINPREP PAP (07/05/2020 10:42 AM EDT) Clinical Information: None given [facility] COMMENT SEE COMMENT [facility] Comment: EXPLANATORY NOTE: The Pap is a screening test for cervical cancer. It is not a diagnostic test and is subject to false negative and false positive results. It is most reliable when a satisfactory sample, regularly obtained, is submitted with relevant clinical findings and history, and when the Pap result is evaluated along with historic and current clinical information. Occupational Therapy Asst : SEE COMMENT [facility] Comment: DCR, CT(ASCP) CT screening location: [address] [address] Interpretation/R esult: Negative for intraepithelial lesion or malignancy. [facility] LMP: 06/24/20 [facility] Prev. BX: NONE GIVEN [facility] Prev. PAP: NONE GIVEN [facility] SOURCE: None given [facility] Statement Of Adequacy: SEE COMMENT [facility] Comment: Satisfactory for evaluation. Endocervical/transformation zone component absent. 07/05/2020 10:4 2 AM EDT [place] [facility] ORDERABLES Final Result [facility] [address] from Last 3 Months or Most Recently Relevant to Health Maintenance Insurance [facility] Care Teams Mail Technician Relationship Specialty Start Date End Date Greg Patterson MD [address] [place] [id number] PCP - General Internal Medicine 08/09/19
--- OUTSIDE RECORDS SUMMARY | 2024-09-18 10:16 | XMS_ITS | Clinical Summary ---
Author Organization [facility] Address [address] [place] [address] Care Team Providers Care Mediation Commissioner Name Role Phone Unavailable Primary Care Provider [...] Vaccine (1 - 2023-2 5 season) 2023 Colorectal Cancer Screening: Colonoscopy 12/31/2023 Depression Screening 12/31/2023 HIV Screening 12/31/2023 Hepatitis C Screening 12/31/2023 Social Influencers of Health Screening 12/31/2023 Influenza Vaccine (#1) 2024 HIB Vaccines Aged Out No longer eligi [...] 5 Years) and At-Risk Patients (6 to 49 Years) Aged Out No longer eligible b ased on patient's age to complete this topic RSV Immunization Patients Un kajal 20 months Aged Out No longer eligible b ased on patient's age to complete this topic Varicella Vaccines Aged Out No longer eligible based on patient's age to complete this topic
== END 2024-09-18 10:34 | disposition home or self-care (01) ==
LOC: HO.HGI 09:53
PROVIDERS: PCP Internal Medicine; Visit Provider Nurse Practitioner Family
DX: K59.01 Slow transit constipation (principal)
CPT/HCPCS: 99213

== ENCOUNTER 2024-11-04 10:33 | Outpatient (REF) | payer OTHER, SELFPAY ==
--- OUTSIDE RECORDS SUMMARY | 2024-11-04 11:26 | XMS_ITS | Encounter Summary ---
Author Organization [employer] Address [address] [place] [address] Care Team Providers Care Striper Machine Name Role Phone Greg Patterson MD Primary Care Prov ider Reason for Visit * Reason Onset Date Comments Results 03/18/2023 Encounter Details Date Type Department [facility] Team [facility] Description 03/18/2023 Telephone [facility] [address] [place], [place] [phone] Greg Patterson MD [address] [place] [address] Results Social History Tobacco Use Types Packs/Day Years Used Date Smoking Tobacco: Never Smokeless Tobacco: Never Alcohol Use Standard Drinks/Week Comments Never 0 (1 standard drink = 0.6 oz pur e alcohol) Depression Answer Date Recorded Patient Health Questionnaire-9 Score 0 04/17/2022 Housing Stability Answer Date Recorded What is your housing situation today? I have chaya boyd 12/24/[address] you [...] a hand Analysis. Please contact pt @ [phone] documented in this encounter Plan of Treatment Not on file documented as of this encounter Visit Diagnoses Not on filedocumented in this encounter Additional Health Concerns Assessment Noted Time PHQ-9 Depression Total Score: 0 04/17/19 23 9:36 AM EST documented as of this encounter Care Teams Striper Machine Relationship Specialty Start Date End Date Greg Patterson MD [address] [place] [id number] PCP - General Internal Medicine 08/09/19 documented as of this encounter
--- OUTSIDE RECORDS SUMMARY | 2024-11-04 11:26 | XMS_ITS | Clinical Summary ---
Author Organization [facility] ity Address [address] [place] [address] Care Team Providers Care Lever Operator Name Role Phone Unavailable Primary Care Provider [...] season) 2023 Colorectal Cancer Screening: Colonoscopy 12/31/2023 HIV Screening 12/31/2023 Hepatitis C Screening 12/31/2023 Social Influencers of Health Screening 12/31/2023 Depression Screening 03/11/2024 Influenza Vaccine (#1) 2024 HIB Vaccines Aged [...]
--- OUTSIDE RECORDS SUMMARY | 2024-11-04 11:26 | XMS_ITS | Clinical Summary ---
Author Organization [employer] Address [address] [facility] [address] [place] [address] Care Team Providers Care Personal Lines Sales Rep Name Role Phone Greg Patterson MD Primary [...] low carb/no sugar diet, follow up in [address] [place] [address] Assessment & Plan (05/04/2024 3:09 PM EST): [...] AM EST) Hemoglobin A1c 6.4(H) <6.0 % [facility] Comment:Hemoglobin A1C Refer ence Range Adults: 4.8 - 6.0 % Non diabetic: < 6.0 % Goal: < 7.0 %Additional Action Suggested: > 8.0 %Note: Hemoglobin A1c results are invalid for patients with abnormal amounts of HbF. Blood transfusions may impact the HbA1c concentration in the patient sample. Estimated Average Glucose 137 mg/dL [facility] Comment:eAG = Estimated ave rage glucose which is %A1C expressed asaverage glucose, using the formula of the S7E-OqodcbdXpazdvn Glucose study (ADAG), Diabetes Care, Vol.31,#8,Oct. 2007 Blood Venous blood specimen / Unknown 05/06/2024 9:44 AM EST 05/06/2024 2:18 PM EST us Greg Cameron MD LAB BLOOD ORDERABL ES Final Result [facility] [address] [place] [phone] * BI Mammogram Screening Tomosynthesis Bilateral (10/02/2023 3:10 PM EDT) Anatomical Region Laterality Modality Breast Bilateral Mammography 10/02/2023 3:10 PM EDT Narrative 10/23/2023 11:03 PM EDT [facility] [address] [place] [address] [place] [address] Mammography Report Signed Patient: Myriam Beltre MR#: [id number] : 1970 Acct:[id number] Age/Sex: 53 / F ADM Date: 10/02/23 Loc: HO.MAMMO Attending Dr: Greg Cameron MD Ordering Physician: Greg Patterson MD Res ults: 1Negative Date of Service: 10/02/23 Follow Up: 1 Year From Orig inal Mammogram Procedure(s): MM tomosynthesis screening BI Accession Number(s): [id number] cc: Greg Patterson MD EXAMINATION: MM SCREENING [...] in OV> 10/23/23 2259 DD/ 1510 TD/TT: Trash Collector Supervisor: Procedure Note Donotuseinterpreter, Image - 10/23/2023 [facility] [address] [place] [address] Mammography Report Signed Patient: Myriam Beltre#: [id number] : 1970Acct:[id number] Age/Sex: 53 / FADM Date: 10/02/23 Loc: LAXMI Attending Dr: Greg Cameron MD Ordering Physician: Greg Patterson ults: 1Negative Date of Service: 10/02/23Follow Up: 1 Year From Orig inal Mammogram Procedure(s): MM tomosynthesis screening BI Accession Number(s): [id number] cc: Greg Patterson MD EXAMINATION: MM SCREENING [...] in OV> 10/23/23 2259 DD/ 1510 TD/TT: Trash Collector Supervisor: Greg Cameron MD IMG BI PROCEDURES Final Result * HIV-1 RNA, Quantitative, Real-Time PCR with Reflex to Genotype (RTI, PI, Integrase) (04/17/2022 9:49 AM EST) HIV 1 RNA, QN PCR NOT DETECTED copies/mL [facility], HIV 1 RNA, QN PCR NOT DETECTED Log copies/mL [facility], Comment: REFERENCE RANGE: NOT DETECTED copies/mL NOT DETECTED Log copies/mL This test was performed using Real-Time Polymerase Chain Reaction. Reportable range is 20 to 10,000,000 copies/mL (1.30-7.00 Log copies/mL). 04/17/2022 9:49 AM EST 04/17/2022 9:50 AM EST Narrative [facility] - 04/20/2022 11:15 PM EST FASTING:YES FASTING: YES Greg Cameron MD LAB BLOOD ORDERABL ES Final Result [facility] [address] [place] [address], [place] [address] [facility], [address] [place] [address] * Hepatitis C Antibody with Reflex to HCV, RNA, Quantitative, Real-Time PCR (04/17/2022 9:49 AM EST) Hepatitis C Antibody NON-REACT MARY NON-REACT MARY [facility] [place] [facility] Index <0.02 <1.00 [facility] Comment: HCV antibody was non-reactive. There is no laboratory evidence of HCV infection. In most cases, no further action is required. However, if recent HCV exposure is suspected, a test for HCV RNA (test code 67833) is suggested. For additional information please refer to http://education.SCYFIX/faq/WWS45m0 (This link is being provided for informational/ educational purposes only.) Blood Venous blood specimen / Unknown 04/17/2022 9:49 AM EST 04/17/2022 9:50 AM EST Narrative [facility] - 04/20/2022 11:15 PM EST FASTING:YES FASTING: YES Greg Cameron MD LAB BLOOD ORDERABL ES Final Result Performing Organization Address [facility] Co de Phone Number [facility] [address] [place] [address], [place] [address] [facility] [place] [facility] [address] [place] [address], ([address]) [place] [address] * Hm Colonoscopy (09/27/2020 8:40 AM EDT) Sanam Provider HEALTH MAINTENANCE Final Result * HPV E6/E7 RFLX TO 16 18/45 (09/14/2020 3:54 PM EDT) HPV 16 RNA [facility] HPV 18/45 RNA [facility] HPV E6 E7 ADD [facility] HPV mRNA E6/E7 rflx Not Detected Not Detected [facility] Comment: Methodology: Residential Real Estate Agent-Mediated Amplification This assay detects E6/E7 viral messenger RNA (mRNA) from 14 high-risk HPV types (16,18,31,33,35,39,45,51,52,56,58,59,66,68). The analytical performance characteristics of this assay have been determined by [facility]. The modifications have not been cleared or approved by the FDA. This assay has been validated pursuant to the CLIA regulations and is used for clinical purposes. For additional information, please refer to http://education.SCYFIX/faq/ADG708a8 (This link if provided for information/ educational purposes only.) THIS TEST WAS PERFORMED AT: [facility] [address] [place] [address],[place] [address] FIDE STEVENS MD 09/14/2020 3:54 PM EDT Daniel Nolan MD HISTORICAL/NON ORDERABLE LABS Fi nal Result [facility] [address] [place] [address], * THINPREP PAP (07/05/2020 10:42 AM EDT) Clinical Information: None given [facility] COMMENT SEE COMMENT [facility] [...] along with historic and current clinical information. Supervisor [employer] And Shank Department : SEE COMMENT [facility] Comment: DCR, CT(ASCP) CT screening location: [address] [address] Interpretation/R esult: Negative for intraepithelial lesion or malignancy. [facility] LMP: 06/24/20 [facility] Prev. BX: NONE GIVEN [facility] Prev. PAP: NONE GIVEN [facility] SOURCE: None given [facility] Statement Of Adequacy: SEE COMMENT [facility] Comment: Satisfactory for evaluation. Endocervical/transformation zone component absent. 07/05/2020 10:4 2 AM EDT [place] [facility] ORDERABLES Final Result [facility] [address] from Last 3 Months or Most Recently Relevant to Health Maintenance Insurance [facility] Care Teams Personal Lines Sales Rep Relationship Specialty Start Date End Date Greg Patterson MD [address] [place] [address] PCP - General Internal Medicine 08/09/19
--- OUTSIDE RECORDS SUMMARY | 2024-11-04 11:26 | XMS_ITS | Encounter Summary ---
Author Organization [employer] Address [address] [facility] [address] [place] [address] Care Team Providers Care Credit Relationship Manager Name Role Phone Greg Patterson MD Primary Care Prov ider Encounter Details Date Type Department Care Team (Late st Contact Info) Description 07/01/2023 Orders Only [facility] [address] [place], [place] [phone] Provider, MD Sanam Social History Tobacco Use [...] AM EDT documented as of this encounter Functional Status * Over the past 2 weeks, how often have you been bothered by any of the following problems? Question Answer Date of Assessment Author Patient Health Questionnaire-2 Score 0 06/10 10:41 AM Marivel Manley [place] * Over the past 2 weeks, how often have you been bothered by any of the following problems? Question Answer Date of Assessment Author Little interest or pleasure in doing things Not at all 07/02/2023 10:41 AM Marivel Manley [place] Feeling down, depressed, or hopeless Not at all 07/02/2023 10:41 AM Marivel Manley [place] Trouble falling or staying asleep, or sleeping too much Not at all 07/02/2023 10:41 AM Marivel Manley [place] Feeling tired or having yoselin le energy Not at all 07/02/2023 10:41 AM Marivel Manley [place] Poor appetite or overeating Not at all 07/02/2023 10 :41 AM Marivel Manley MA Feeling bad about yourself - or that you are a failure or have let yourself or your family down Not at all 07/02/2023 10:41 AM Marivel Beckwith MA Trouble concentrating on thi ngs, such as reading the newspaper or watching television Not at all 07/02/2023 10:41 AM Marivel Manley MA Moving or speaking so slowly that other people could have noticed? Or the opposite - being so fidgety or restless that you have been moving around a lot more than usual. Not at all 07/02/2023 10:41 AM Marivel Manley MA Thoughts that you would be b jignesh off or hurting yourself in some way Not at all 07/02/2023 10:41 AM Marivel Manley MA Patient Health Questionnaire -9 Score 0 07/02/2023 10:41 AM EDT Marivel Hong MA documented as of this encounter Plan of Treatment Not on file documented as of this encounter Procedures Procedure Name Priority Date/Time Associated Diagnosis Comments HM COLONOSCOPY Routine 09/27/2020 8:40 AM EDT documented in this encounter Results * Hm Colonoscopy (09/27/2020 8:40 AM EDT) Historical Provider HEALTH MAINTENANCE Final Result documented in this encounter Visit Diagnoses Not on filedocumented in this encounter Additional Health Concerns Assessment Noted Time PHQ-9 Depression Total Score: 0 04/17/19 9:36 AM EST documented as of this encounter Care Teams Credit Relationship Manager Relationship Specialty Start Date End Date JansenGreg Hernandez MD [address] [place] [address] PCP - General Internal Medicine 08/09/19 documented as of this encounter
--- OUTSIDE RECORDS SUMMARY | 2024-11-04 11:26 | XMS_ITS | Encounter Summary ---
Author Organization [employer] Address [address] [facility] [address] [place] [address] Care Team Providers Care Heating Technician Name Role Phone Greg Patterson MD Primary Care Prov ider Reason for Visit * Reason Onset Date Comments Results 08/13/2023 Encounter Details Date Type Department Care Team ([facility] st Contact Info) Description 08/13/2023 Telephone [facility] [address] [place] [address] Greg Patterson MD [address] [place] [address] Results Social History Tobacco Use Types Packs/Day [...] documented as of this encounter Care Teams Heating Technician Relationship Specialty Start Date End Date Greg Patterson MD [address] [place] [address] PCP - General Internal Medicine 08/09/19 documented as of this encounter
== END 2024-11-04 10:34 | disposition home or self-care (01) ==
LOC: HO.MAMMO 10:33
PROVIDERS: PCP Internal Medicine; Visit Provider Internal Medicine
DX: Z12.31 Encounter for screening mammogram for malignant neoplasm of breast (principal)
CPT/HCPCS: 77063; 77067

== ENCOUNTER → 2024-11-04 10:45 | Outpatient (BNV) | payer OTHER, SELFPAY | PROVIDERS: PCP Internal Medicine; Visit Provider Radiology Body Imaging | DX: Z12.31 Encounter for screening mammogram for malignant neoplasm of breast (principal) | CPT/HCPCS: 77063; 77067 ==

== ENCOUNTER 2025-01-28 10:13 | Outpatient (REF) | payer OTHER, SELFPAY ==
--- OUTSIDE RECORDS SUMMARY | 2025-01-28 17:30 | XMS_ITS | Clinical Summary ---
Author Organization [employer] [facility] Address [address] [place] [address] Care Team Providers Care Communicable Disease Specialist Name Role Phone Unavailable Primary Care Provider [...] Last Done Comments Breast Cancer Screening 1970 Colorectal Cancer Screening: Colonoscopy 1970 DTaP,Tdap,and Td Vaccines (1 - Tdap) 1990 Hepatitis B Vaccines (1 of 3 - 19+ 3-dose series) 1990 Cervical Cancer Screening: P ap Smear 01/25/1992 Pneumococcal Vaccine: 50+ Ye ars (1 of 1 - PCV) 2021 Zoster Vaccines (1 of 2) 2021 HIV Screening 12/31/2023 Hepatitis C Screening 12/31/2023 Social Influencers of Health Screening 12/31/2023 Depression Screening 03/11/2024 COVID-19 Vaccine (1 - 2024-2 6 season) 2024 Influenza Vaccine (#1) 2024 RSV Immunization Adult Patie nts (1 - 1-dose 75+ series) 2046 HIB Vaccines Aged Out No longer eligi [...]
== END 2025-01-28 10:14 | disposition home or self-care (01) ==
LOC: HO.LNP 10:13
PROVIDERS: PCP Internal Medicine; Visit Provider Obstetrics & Gynecology
DX: Z01.419 Encounter for gynecological examination (general) (routine) without abnormal findings (principal); Z12.11 Encounter for screening for malignant neoplasm of colon; Z11.51 Encounter for screening for human papillomavirus (HPV)
CPT/HCPCS: 87626; 88175

== ENCOUNTER 2025-01-28 10:13 | Outpatient (AMB) | payer OTHER, SELFPAY ==
[2025-01-28 10:49] VITALS: BP 116/68; BMI 36.5
--- NOTE | 2025-01-28 10:49 | A.OFFVIS_ITS ---
Vital Signs 01/28/25 10:49 Height 5 ft 6 in Weight 226 lb BMI 36.5 BP 116/68 Intake Visit Reasons: CASING COOKER annual exam/DO NOT RS X2 Plater Supervisor Required: Yes Plater Supervisor Language: Slab Polisher Services: Plater Supervisor Present (in person) Plater Supervisor Name: Milagro DAVIS Information Interpreted: non-clinical & clinical Operations Accountant: Operations Accountant Present (Milagro DAVIS) Accompanied by: Self / Same As Patient Allergies No Known Allergies Allergy (Verified 01/28/25 10:59) Post menopausal: Yes HPI Comments Details: Presenting for annual exam. No complaints. Last Pap/HPV was negative in 09/28 Last Mammogram was BI-RADS 2 in 11/02 S screening colonoscopy was in 09/28, the recommendation was to repeat in 5 years [facility] Medical History Lipoma of both lower extremities Constipation Anemia Surgical History History of esophagogastroduodenoscopy (EGD) Hx of colonoscopy H/O hernia repair Hx of breast reduction, elective Family History Mother Diabetes Social History Household Members: None Housing: Apartment Alcohol intake: current Alcohol intake frequency: holidays/special occasions only Comment: medicated in PACU Patient Tobacco Use Status: Never used Tobacco Second Hand Smoke Exposure: No Current occupational status: employed Current occupation: [employer] Sexually active: No Sexual orientation: Straight/Heterosexual Gender identity: Female Female Reproductive History Menstrual Age of Menarche: 13 Total pregnancies: 0 Date of last pap smear: 09/15/20 Date of Mammogram: 11/04/24 Review of Systems Const All systems reviewed & are unremarkable except as noted in HPI and below Card Reports as per HPI Resp Reports as per HPI GI Reports as per HPI and Reports no additional complaints Reports as per HPI Physical Exam Vital Signs: Last Vital Signs BP 116/68 01/28/25 10:49 BMI result Body Mass Index 36.5 Const General: cooperative, healthy appearing and comfortable Chest Chest palpation & inspection: normal inspection of the chest and normal palpation of entire chest wall Breast/axilla inspection: normal inspection of the breasts and normal inspection of the axillae Breast/axilla palpation: normal palpation of the breasts, normal palpation of the axillae and no axillary lymphadenopathy Resp Effort & Inspection: normal respiratory effort Auscultation: clear to auscultation bilaterally Percussion: percussion normal Cardio Palpation: normal PMI Rate: regular rate Rhythm: regular rhythm Heart sounds: no murmurs and no rubs Peripheral pulses: Peripheral pulses 2+ throughout GI Inspection: Yes normal to inspection Palpation (GI): Soft to palpation, nontender, no guarding, not rigid and No hepatosplenomegaly present Percussion: Yes normal to percussion Auscultation: normal bowel sounds Rectal Exam - Female: deferred General: Yes bladder normal to palpation External Female Exam: No lesion Speculum Exam - Vagina: normal appearance of the vagina, normal palpation, normal vaginal discharge and not erythematous Speculum Exam - Cervix: normal appearance of the cervix and normal palpation Bimanual exam- vagina & uterus: normal bimanual exam, normal palpation, uterine size normal, bladder normal to palpation, consistency normal and normal palpation Bimanual Exam- Adnexa, other: normal adnexae, no masses and no tenderness Assessment & Plan Assessment & Plan (1) Well woman exam: Code(s): Z01.419 - Encounter for gynecological examination (general) (routine) without abnormal findings Category: Medical Plan: Co testing done. Counseled the patient about the recommended dietary allowance of 1200 mg of Calcium & 600 IU of vitamin D. Instructions given the patient to schedule next screening Mammogram in 11/03 The patient was referred to GI for screening colonoscopy . The patient was instructed to perform monthly self-breast exams and schedule annual exam in a year. All questions answered and the patient verbalized understanding. Orders: Referrals Gastroenterology Referral Z12.11 - Encounter for screening for malignant neoplasm of colon Coding Level of Care Code Est Pt Prev Care 40-64y([address]) Diagnoses Well woman exam Z01.419
--- OUTSIDE RECORDS SUMMARY | 2025-01-28 15:02 | XMS_ITS | Clinical Summary ---
Author Organization [employer] Address [address] [place] [address] Care Team Providers Care Orchestra Leader Name Role Phone Greg Patterson MD Primary [...] low carb/no sugar diet, follow up in [address] [place] [address] Assessment & Plan (05/04/2024 3:09 PM EST): [...] Encounters Date Type Department Care Team Description 12/11/2024 Telephone [facility] MED & PEDS [address] [facility] [place] [address] Greg Patterson MD RV APPT 11/04/2024 Orders Only [facility] MED & PEDS [address] [place] [address] Greg Patterson MD from Last 3 Months Immunizations Immunization Administration Dates Next Due Influenza [...] Years (1 of 1 - PCV) 2021 Tobacco Screening 01/03/2024 01/02/2023 Depression Screening 07/01/2024 07/02/2023, 07/02/19 24 SDOH Screening 07/01/2024 07/02/2023 COVID-19 Vaccine ( season) 2024 04/04/2022, 07/15/2020, 06/17/2020 Influenza Vaccine (#1) 2024 7, 11/23/2014, 12/01/2013 Alcohol/Substance Use Screening 05/04/2025 05/04/2024 Diabetes: Hemoglobin A1C 05/06/2025 025, 07/04/2023, 04/17/2022, Additional history exists Cervical Cancer Screening 07/05/2025 Pap Smear 07/05/2025 07/05/2020 HPV/Cotest 09/14/2025 09/14/2020, 07/0 09/2020, 07/05/2020 Colonoscopy 09/27/2025 09/27/2020 Colorectal Cancer Screening 09/27/2025 Mammogram 11/04/2026 11/04/2024, 07/2 06/2023, 09/26/2022, Additional history exists DTaP/Tdap/Td Vaccines (3 - [...] Comments BI MAMMOGRAM SCREENING TOMOSYNTHESIS BILATERAL Routine 11/04/2024 10:40 AM EDT HEMOGLOBIN A1C Routine 05/06/2024 9:44 AM EST Pre-diabetes HEPATITIS C AB W/REFL TO HCV RNA, [...] Results * BI Mammogram Screening Tomosynthesis Bilateral (11/04/2024 10:40 AM EDT) Anatomical Region Laterality Modality Breast Bilateral Mammography 11/04/2024 10:4 0 AM EDT Narrative 11/07/2024 2:09 PM EDT [facility] [place] [address] Mammography Report Signed Patient: Myriam Beltre MR#: [id number] : 1970 Acct:[id number] Age/Sex: 54 / F ADM Date: 11/04/24 Loc: HO.MAMMO Attending Dr: Greg Cameron MD Ordering Physician: Greg Patterson MD Res ults: 2Benign Findings Date of Service: 11/04/24 Follow Up: 1 Year From [facility] Mammogram Procedure(s): MM tomosynthesis screening BI Accession Number(s): [id number] cc: Greg Patterson MD EXAMINATION: MM SCREENING DIGITAL BREAST TOMOSYNTHESIS, BILATERAL CLINICAL INFORMATION: Screening. Asymptomatic. COMPARISON: Comparison made to multiple prior, most recent October 02, 2023, and most remote June 12, 2016. TECHNIQUE: Digital breast tomosynthesis is performed in mediolateral oblique and craniocaudal views along with computer-aided detection (CAD). Additional views were taken if needed. FINDINGS: BREAST COMPOSITION: There are scattered areas of fibroglandular density (ACR BI-RADS breast composition Category b). BILATERAL BREASTS: History of bilateral reduction mammoplasty. No significant masses, suspicious calcifications or other abnormalities are seen in either breast. MM/MM tomosynthesis screening BI IMPRESSION: BILATERAL BREASTS: Benign, no mammographic evidence of malignancy. Normal interval follow-up is recommended in 12 months. ASSESSMENT: BI-RADS 2 - Benign Findings RECOMMENDATION: Routine annual mammography screening. FOLLOW-UP: 1 year F/U This examination should not preclude the clinical evaluation of a suspicious palpable abnormality. This patient's information was entered into a reminder system with a target due date for their next mammogram. Electronically signed by: Richard Durán MD 11/07/2024 02:06 PM EDT Dictated By: Richard Durán MD Signed By: <Electronically signed by Richard Durán MD in OV> 11/07/24 1406 DD/ 1040 TD/TT: 11/04/24 1100 Tablet Coater: Procedure Note Donotuseinterpreter, Image - 11/07/2024 [facility] [address] [place] [address] Mammography Report Signed Patient: Roberto Beltre#: [id number] : 1970Acct:[id number] Age/Sex: 54 / FADM Date: 11/04/24 Loc: HO.MAMMO Attending Dr: Greg Cameron MD Ordering Physician: Greg Patterson ults: 2Benign Findings Date of Service: 11/04/24Follow Up: 1 Year From Orig ina Mammogram Procedure(s): MM tomosynthesis screening BI Accession Number(s): [id number] cc: Greg Patterson MD EXAMINATION: MM SCREENING DIGITAL BREAST TOMOSYNTHESIS, BILATERAL CLINICAL INFORMATION: Screening. Asymptomatic. COMPARISON: Comparison made to multiple prior, most recent October 02, 2023, and most remote June 12, 2016. TECHNIQUE: Digital breast tomosynthesis is performed in mediolateral oblique and craniocaudal views along with computer-aided detection (CAD). Additional views were taken if needed. FINDINGS: BREAST COMPOSITION: There are scattered areas of fibroglandular density (ACR BI-RADS breast composition Category b). BILATERAL BREASTS: History of bilateral reduction mammoplasty. No significant masses, suspicious calcifications or other abnormalities are seen in either breast. MM/MM tomosynthesis screening BI IMPRESSION: BILATERAL BREASTS: Benign, no mammographic evidence of malignancy. Normal interval follow-up is recommended in 12 months. ASSESSMENT: BI-RADS 2 - Benign Findings RECOMMENDATION: Routine annual mammography screening. FOLLOW-UP: 1 year F/U This examination should not preclude the clinical evaluation of a suspicious palpable abnormality. This patient's information was entered into a reminder system with a target due date for their next mammogram. Electronically signed by: Richard Durán MD 11/07/2024 02:06 PM EDT Workstation: [email or web address] Dictated By: Richard Durán MD Signed By: <Electronically signed by Richard Durán MD in OV> 11/07/24 1406 DD/ 1040 TD/TT: 11/04/24 1100 Tablet Coater: us Greg Cameron MD IMG BI PROCEDURES Final Result * (ABNORMAL) Hemoglobin A1c (05/06/2024 9:44 AM EST) Hemoglobin A1c 6.4(H) <6.0 % [facility] Comment:Hemoglobin A1C Refer ence Range Adults: 4.8 - 6.0 % Non diabetic: < 6.0 % Goal: < 7.0 %Additional Action Suggested: > 8.0 %Note: Hemoglobin A1c results are invalid for patients with abnormal amounts of HbF. Blood transfusions may impact the HbA1c concentration in the patient sample. Estimated Average Glucose 137 mg/dL [facility] Comment:eAG = Estimated ave rage glucose which is %A1C expressed asaverage glucose, using the formula of the V3H-BqrmshxLfqqobv Glucose study (ADAG), Diabetes Care, Vol.31,#8,Oct. 2007 Blood Venous blood specimen / Unknown 05/06/2024 9:44 AM EST 05/06/2024 2:18 PM EST us Greg Cameron MD LAB BLOOD ORDERABL ES Final Result [facility] [address] [place] [phone] * HIV-1 RNA, Quantitative, Real-Time PCR with Reflex to Genotype (RTI, PI, Integrase) (04/17/2022 9:49 AM EST) Pathologist [facility] HIV 1 RNA, QN PCR NOT DETECTED copies/mL [facility], HIV 1 RNA, QN PCR NOT DETECTED Log copies/mL [facility], Comment: REFERENCE RANGE: NOT DETECTED copies/mL NOT DETECTED Log copies/mL This test was performed using Real-Time Polymerase Chain Reaction. Reportable range is 20 to 10,000,000 copies/mL (1.30-7.00 Log copies/mL). 04/17/2022 9:49 AM EST 04/17/2022 9:50 AM EST Narrative [facility] - 04/20/2022 11:15 PM EST FASTING:YES FASTING: YES Greg Cameron MD LAB BLOOD ORDERABL ES Final Result [facility] [address], [place] [address] [employer] [facility], [address] [place] [address] * Hepatitis C Antibody with Reflex to HCV, RNA, Quantitative, Real-Time PCR (04/17/2022 9:49 AM EST) [facility] Hepatitis C Antibody NON-REACT MARY NON-REACT MARY [employer] [facility] [place] [facility] Index <0.02 <1.00 [facility] Comment: HCV antibody was non-reactive. There is no laboratory evidence of HCV infection. In most cases, no further action is required. However, if recent HCV exposure is suspected, a test for HCV RNA (test code 35716) is suggested. For additional information please refer to http://education.Little Pim/faq/FQO29v9 (This link is being provided for informational/ educational purposes only.) Blood Venous blood specimen / Unknown 04/17/2022 9:49 AM EST 04/17/2022 9:50 AM EST Narrative [facility] - 04/20/2022 11:15 PM EST FASTING:YES FASTING: YES Greg Cameron MD LAB BLOOD ORDERABL ES Final Result [address], [place] [address] [employer] [facility] [address] [place] [address], (Nl2) [place] [address] * Hm Colonoscopy (09/27/2020 8:40 AM EDT) Historical Provider HEALTH MAINTENANCE Final Result * HPV E6/E7 RFLX TO 16 18/45 (09/14/2020 3:54 PM EDT) HPV 16 RNA TNP [facility] HPV 18/45 RNA [facility]NP [facility] HPV E6 E7 ADD TNP [facility] HPV mRNA E6/E7 rflx Not Detected Not Detected [facility] Comment: Methodology: Residential Child Care Counselor-Mediated Amplification This assay detects E6/E7 viral messenger RNA (mRNA) from 14 high-risk HPV types (16,18,31,33,35,39,45,51,52,56,58,59,66,68). The analytical performance characteristics of this assay have been determined by [employer]. The modifications have not been cleared or approved by the FDA. This assay has been validated pursuant to the CLIA regulations and is used for clinical purposes. For additional information, please refer to http://education.Hailo.Zane Prep/faq/EIS955i2 (This link if provided for information/ educational purposes only.) THIS TEST WAS PERFORMED AT: [facility] [address] [place] [address],[place] [address] FIDE STEVENS MD 09/14/2020 3:54 PM EDT Daniel Nolan MD HISTORICAL/NON ORDERABLE LABS Fi nal Result Performing Organization Address [facility] Co de Phone Number [facility] [address] * THINPREP PAP (07/05/2020 10:42 AM EDT) Clinical Information: None given [facility] COMMENT SEE COMMENT [facility] [...] along with historic and current clinical information. Electrical Worker : SEE COMMENT [facility] Comment: DCR, CT(ASCP) CT screening location: [place] [address] Interpretation/R esult: Negative for intraepithelial lesion or malignancy. [facility] LMP: 06/24/20 [facility] Prev. BX: NONE GIVEN [facility] Prev. PAP: NONE GIVEN [facility] SOURCE: None given [facility] Statement Of Adequacy: SEE COMMENT [facility] Comment: Satisfactory for evaluation. Endocervical/transformation zone component absent. 07/05/2020 10:4 2 AM EDT Jamaica Carpenter CNM LAB PATHOLOGY ORDERABLES Final Result Performing Organization Address [facility] de Phone Number [facility] [address] from Last 3 Months or Most Recently Relevant to Health Maintenance Insurance [facility] Care Teams Orchestra Leader Relationship Specialty Start Date End Date Greg Patterson MD [address] [place] [id number] PCP - General Internal Medicine 08/09/19
--- OUTSIDE RECORDS SUMMARY | 2025-01-28 15:02 | XMS_ITS | Encounter Summary ---
Author Organization [employer] Address [address] [facility] [address] [place] [address] Care Team Providers Care Projection Welding Machine Operator Name Role Phone Greg Patterson MD Primary Care Prov ider Reason for Visit * Reason Onset Date Comments Results 08/13/2023 Encounter Details Date Type Department Care Team ([facility] st Contact Info) Description 08/13/2023 Telephone [facility] MEDICINE [address] [place] [address] Greg Patterson MD [address] [place] [address] Results Social History Tobacco Use Types Packs/Day [...] documented as of this encounter Care Teams Projection Welding Machine Operator Relationship Specialty Start Date End Date Greg Patterson MD [address] [place] [id number] PCP - General Internal Medicine 08/09/19 documented as of this encounter
--- OUTSIDE RECORDS SUMMARY | 2025-01-28 15:02 | XMS_ITS | Encounter Summary ---
Author Organization [employer] Address [address] [facility] [address]t [place] [address] Care Team Providers Care Die Repair Name Role Phone Greg Patterson MD Primary Care Prov ider Reason for Visit * Reason Onset Date Comments Results 03/18/2023 Encounter Details Date Type Department Care Team ([facility] Contact Info) Description 03/18/2023 Telephone [facility] CHC MED & PEDS [address] [place], [place] [phone] Greg Patterson MD [address] [place] [address] Results Social History Tobacco Use Types Packs/Day [...] a hand Analysis. Please contact pt @ [phone] documented in this encounter Plan of Treatment Not on file documented as of this encounter Visit Diagnoses Not on filedocumented in this encounter Additional Health Concerns Assessment Noted Time PHQ-9 Depression Total Score: 0 04/17/19 23 9:36 AM EST documented as of this encounter Care Teams Die Repair Relationship Specialty Start Date End Date Greg Patterson MD [address] [place] [phone] PCP - General Internal Medicine 08/09/19 documented as of this encounter
--- OUTSIDE RECORDS SUMMARY | 2025-01-28 15:02 | XMS_ITS | Encounter Summary ---
Author Organization [employer] Address [address] [place] [address] Care Team Providers Care Carbon Paper Machine Operator Name Role Phone Greg Patterson MD Primary Care Prov ider Encounter Details Date Type Department Care Team (Late st Contact Info) Description 07/01/2023 Orders Only [facility] MEDICINE [address] [place], [place] [phone] Provider, MD Sanam Social History Tobacco Use [...] documented as of this encounter Care Teams Carbon Paper Machine Operator Relationship Specialty Start Date End Date JansenGreg Hernandez MD [address] [place] [phone] PCP - General Internal Medicine 08/09/19 documented as of this encounter
== END 2025-01-28 11:18 | disposition home or self-care (01) ==
LOC: HO.HWS 10:14
PROVIDERS: PCP Internal Medicine; Visit Provider Obstetrics & Gynecology
DX: Z01.419 Encounter for gynecological examination (general) (routine) without abnormal findings (principal)
CPT/HCPCS: 99396; 99459